=== PATIENT | female | born 1960 | race Caucasian/White ===

== ENCOUNTER 2018-07-02 02:15 | Outpatient (CLI) | payer OTHER, SELFPAY ==
--- NOTE | 2018-07-02 07:50 | DI.REPORT_ITS ---
SYMPTOM/DIAGNOSIS: SCREENING, Z12.31 MAMMOGRAM: Mammograms were interpreted according to the usual protocol including computer analysis with CAD system, tomosynthesis and C view imaging. Comparison with prior examinations. Breast density B. No masses or microcalcifications are seen. There is nothing to suggest malignancy. IMPRESSION: Negative mammogram. Routine screening is recommended. Category I. MQSA ASSESSMENT OF FINDINGS: Negative. Category 1. Patient will receive a letter notifying them of these results. BI-RADS category B. There are scattered areas of fibroglandular density.
== END 2018-07-02 02:16 ==
PROVIDERS: PCP Family Medicine; Visit Provider Nurse Practitioner Family
DX: Z12.31 Encounter for screening mammogram for malignant neoplasm of breast (principal)
CPT/HCPCS: 77063; 77067

== ENCOUNTER 2018-07-20 07:01 | Outpatient (CLI) | payer OTHER, SELFPAY | END 2018-07-20 07:21 | PROVIDERS: PCP Family Medicine; Visit Provider Family Medicine | DX: E11.9 Type 2 diabetes mellitus without complications (principal) | CPT/HCPCS: 36415; 83036 ==

== ENCOUNTER 2019-05-06 02:51 | Outpatient (CLI) | payer OTHER, SELFPAY ==
[2019-05-06 09:22] LABS: CREATININE 1.28 mg/dL (0.55-1.02); Calculated LDL 176 mg/dL; Cholesterol 247 mg/dL (50-200); Estimated GFR 43.14 (mL/min/1.73m2); HDL Cholesterol 40 mg/dL (40-60); Potassium 4.8 mmol/L (3.5-5.1); Triglyceride 159 mg/dL (30-150)
== END 2019-05-06 03:11 ==
PROVIDERS: PCP Family Medicine; Visit Provider Family Medicine
DX: E66.9 Obesity, unspecified (principal); E78.5 Hyperlipidemia, unspecified
CPT/HCPCS: 36415; 80061; 83721; 82565; 84132

== ENCOUNTER 2019-06-20 14:33 | Outpatient (REF) | payer OTHER, SELFPAY ==
--- NOTE | 2019-06-20 13:00 | PAPFT_PTH ---
PATIENT: Loly Pollock LOC: [facility] U#:[id number] AGE/SX: 58/F ROOM: RE06/20/[address]: BARB Charles : 1960 BED: DIS: 06/20/2019 SPEC #: [id number] RECD: 06/20/19 14:52 STATUS: FRANCOIS REQ #: [id number] LONNIE: 06/20/19 13:[address]: Stephanie Olivares DEPT: [facility] Cytology RECD BY: Iris Vasquez Tissues: 1 - CX/ENDOCX FOR PAP SMEARS Procedures: PAP THIN PREP/UVM Screening HPV DNA PROBE Comments: [id number]
== END 2019-06-20 14:53 ==
LOC: LBN 14:33
PROVIDERS: PCP Family Medicine; Visit Provider Nurse Practitioner Family
DX: Z12.4 Encounter for screening for malignant neoplasm of cervix (principal); Z11.51 Encounter for screening for human papillomavirus (HPV)
CPT/HCPCS: 88142; 87624

== ENCOUNTER 2019-07-13 00:40 | Outpatient (CLI) | payer OTHER, SELFPAY ==
--- NOTE | 2019-07-13 08:50 | DI.MAMMO_ITS ---
SYMPTOM/DIAGNOSIS: SCREENING, Z12.39 MAMMOGRAMS: Mammograms were interpreted according to the usual protocol including computer analysis with CAD system, tomosynthesis and C view imaging. Comparison is made with exams from [id number]. The breasts are composed of scattered fibroglandular densities, breast density, Category B. No suspicious masses or suspicious microcalcifications are seen. There has been no significant change. IMPRESSION: Category 1, negative mammogram. Yearly screening mammography is recommended. [facility] ASSESSMENT OF FINDINGS: Negative. Category 1. Patient will receive a letter notifying them of these results. BI-RADS category B. There are scattered areas of fibroglandular density.
== END 2019-07-13 01:00 ==
PROVIDERS: PCP Family Medicine; Visit Provider Nurse Practitioner Family
DX: Z12.31 Encounter for screening mammogram for malignant neoplasm of breast (principal)
CPT/HCPCS: 77063; 77067

== ENCOUNTER 2019-07-13 01:13 | Outpatient (CLI) | payer OTHER, SELFPAY ==
[2019-07-13 09:16] LABS: Hemoglobin A1C 5.9 % (4.5-6.2)
[2019-07-13 09:52] LABS: Anion Gap 9.8 mmol/L (3-11); BUN 23 mg/dL (7-18); CO2 25.2 mmol/L (21.0-32.0); CREATININE 1.57 mg/dL (0.55-1.02); Calcium 8.7 mg/dL (8.5-10.1); Chloride 106 mmol/L (98-107); Estimated GFR 34.08 (mL/min/1.73m2); Glucose 107 mg/dL (70-100); Potassium 4.8 mmol/L (3.5-5.1); Sodium 141 mmol/L (136-145)
== END 2019-07-13 01:33 ==
PROVIDERS: PCP Family Medicine; Visit Provider Family Medicine
DX: N28.9 Disorder of kidney and ureter, unspecified (principal); E74.39 Other disorders of intestinal carbohydrate absorption
CPT/HCPCS: 36415; 80048; 83036

== ENCOUNTER 2019-08-01 02:32 | Outpatient (CLI) | payer OTHER, SELFPAY ==
[2019-08-01 09:01] LABS: BUN 18 mg/dL (7-18)
[2019-08-01 09:06] LABS: CREATININE 1.44 mg/dL (0.55-1.02); Estimated GFR 37.52 (mL/min/1.73m2)
== END 2019-08-01 02:52 ==
PROVIDERS: PCP Family Medicine; Visit Provider Family Medicine
DX: N28.9 Disorder of kidney and ureter, unspecified (principal)
CPT/HCPCS: 36415; 84520; 82565

== ENCOUNTER 2020-05-24 01:41 | Outpatient (CLI) | payer OTHER, SELFPAY ==
[2020-05-24 07:52] LABS: Hemoglobin A1C 5.7 % (3.8-5.6)
[2020-05-24 08:52] LABS: Anion Gap 8.6 mmol/L (3-11); BUN 26 mg/dL (7-18); CO2 28.4 mmol/L (21.0-32.0); CREATININE 1.44 mg/dL (0.55-1.02); Calcium 9.1 mg/dL (8.5-10.1); Chloride 108 mmol/L (98-107); Estimated GFR 37.52 (mL/min/1.73m2); Glucose 93 mg/dL (74-106); Potassium 4.4 mmol/L (3.5-5.1); Sodium 145 mmol/L (136-145)
[2020-05-25 08:27] LABS: Calculated LDL 154 mg/dL (<100); Cholesterol 230 mg/dL (<200); HDL Cholesterol 41 mg/dL (40-60); Triglyceride 179 mg/dL (<150)
== END 2020-05-24 02:01 ==
PROVIDERS: PCP Family Medicine; Visit Provider Family Medicine
DX: R73.9 Hyperglycemia, unspecified (principal); E87.1 Hypo-osmolality and hyponatremia; E78.5 Hyperlipidemia, unspecified
CPT/HCPCS: 36415; 80048; 80061; 83036

== ENCOUNTER 2020-07-16 01:15 | Outpatient (CLI) | payer OTHER, SELFPAY ==
--- NOTE | 2020-07-16 07:30 | DI.MAMMO_ITS ---
EXAM: MG MAMMO SCREENING CLINICAL HISTORY: screening TECHNIQUE: Mammograms were interpreted according to the usual protocol including computer analysis w [employer] CAD system, tomosynthesis and C-view imaging. COMPARISON: FINDINGS: The breasts are of moderate density with fairly symmetrical distribution of fibroglandular tissue. N o dominant mass or clumped microcalcification is identified in either breast. The current examinatio n is compared with previous studies including July 2019 and there has been no gross interval sulema nge in appearance in comparison with the prior studies. IMPRESSION: No specific evidence of malignancy at this time. Routine screening examinations are suggested at yea rly intervals due to the family history of breast carcinoma. BI-RADS Category 1 - Negative Breast Density - Category B - Scattered areas of fibroglandular density
== END 2020-07-16 01:35 ==
PROVIDERS: PCP Family Medicine; Visit Provider Nurse Practitioner Family
DX: Z12.31 Encounter for screening mammogram for malignant neoplasm of breast (principal)
CPT/HCPCS: 77063; 77067

== ENCOUNTER 2021-09-06 02:35 | Outpatient (CLI) | payer BC, SELFPAY ==
--- NOTE | 2021-09-06 07:30 | DI.MAMMO_ITS ---
Exam(s) MAMMO SCREENING EXAM: MAMMO SCREENING CLINICAL HISTORY: screening TECHNIQUE: Mammograms were interpreted according to the usual protocol including computer analysis w [employer] CAD system, tomosynthesis and C-view imaging. COMPARISON: 2011 through 2019 FINDINGS: The breasts are composed of mainly fatty density , Breast Density category A. No suspicious masses or suspicious microcalcifications are seen. No skin thickening or abnormal axillary lymph nodes are seen. There has been no significant change from prior exams. IMPRESSION: BI-RADS Category 1, Negative mammogram Yearly screening mammography is recommended. Breast Density - Category A, fatty density. A negative radiographic report should not delay biopsy if a dominant or clinically suspicious mass is present. Up to ten percent of cancers are not identified on mammography. A negative report may reinforce clinical impression. Adenosis and dense breasts may obscure an underlying neoplasm. False positive reports average 6 to 10%. Patient will receive a letter notifying them of these results.
== END 2021-09-06 02:55 ==
PROVIDERS: PCP Family Medicine; Visit Provider Nurse Practitioner Family
DX: Z12.31 Encounter for screening mammogram for malignant neoplasm of breast (principal)
CPT/HCPCS: 77063; 77067

== ENCOUNTER 2022-07-10 03:09 | Outpatient (CLI) | payer BC, SELFPAY ==
[2022-07-10 07:48] LABS: Hemoglobin A1C 5.9 % (<5.7)
[2022-07-10 07:50] LABS: Anion Gap 6.8 mmol/L (3-11); BUN 21 mg/dL (7-18); CO2 32.2 mmol/L (21.0-32.0); CREATININE 1.3 mg/dL (0.55-1.02); Calculated LDL 150 mg/dL (<100); Chloride 104 mmol/L (98-107); Cholesterol 228 mg/dL (<200); Estimated GFR 47.37 (mL/min/1.73m2); Glucose 116 mg/dL (74-106); HDL Cholesterol 39 mg/dL (40-60); Potassium 4.2 mmol/L (3.5-5.1); Sodium 143 mmol/L (136-145); Triglyceride 198 mg/dL (<150)
== END 2022-07-10 03:10 | disposition home or self-care (01) ==
LOC: LBO 03:10
PROVIDERS: PCP Family Medicine; Visit Provider Family Medicine
DX: E87.1 Hypo-osmolality and hyponatremia (principal); E78.5 Hyperlipidemia, unspecified; R73.9 Hyperglycemia, unspecified
CPT/HCPCS: 36415; 80048; 80061; 83036

== ENCOUNTER 2022-08-28 15:54 | Outpatient (REF) | payer BC, SELFPAY ==
--- NOTE | 2022-08-28 15:25 | PAPFT_PTH ---
PATIENT: Loly Pollock LOC: [facility] U#:[id number] AGE/SX: 62/F ROOM: RE08/28/[address]: Loly Azul CNM : 1960 BED: DIS: 08/28/2022 SPEC #: [id number] RECD: 08/28/22 17:52 STATUS: FRANCOIS REQ #: [id number] LONNIE: 08/28/22 15:[address]: Loly Azul DEPT: [facility] Cytology RECD BY: Sofy Myers ENTERED: 08/28/22 17:52 SP TYPE: PAPFT OTHR DR: Gilberto Catherine MD Tissues: 1 - CX/ENDOCX FOR PAP SMEARS Procedures: PAP THIN PREP/UVM Screening HPV DNA PROBE Comments: [id number]
== END 2022-08-28 15:55 | disposition home or self-care (01) ==
LOC: LBN 15:54
PROVIDERS: PCP Family Medicine; Visit Provider Advanced Practice Midwife
DX: Z01.419 Encounter for gynecological examination (general) (routine) without abnormal findings (principal)
CPT/HCPCS: 88142; 87624

== ENCOUNTER → 2022-09-18 02:16 | Outpatient (CLI) | payer BC, SELFPAY ==
--- NOTE | 2022-09-18 07:48 | DI.MAMMO_ITS ---
Exam(s) MAMMO SCREENING EXAM: MAMMO SCREENING CLINICAL HISTORY: screening,z12.39 TECHNIQUE: Mammograms were interpreted according to the usual protocol including computer analysis w [employer] CAD system, tomosynthesis and C-view imaging. COMPARISON: FINDINGS: The breasts are of moderate density with fairly symmetrical distribution of fibroglandular tissue. N o dominant mass or clumped microcalcification is identified in either breast. The current examinatio n is compared with previous examinations including September 2021 and there has been no gross interval change in appearance in comparison with the prior studies. IMPRESSION: No specific evidence of malignancy at this time. Routine screening examinations are suggested at yea rly intervals in this age group according to the ACS ACR guidelines. BI-RADS Category 1 - Negative Breast Density - Category B - Scattered areas of fibroglandular density
== END ==
PROVIDERS: PCP Family Medicine; Visit Provider Advanced Practice Midwife
DX: Z12.31 Encounter for screening mammogram for malignant neoplasm of breast (principal)
CPT/HCPCS: 77063; 77067

== ENCOUNTER 2023-06-29 02:29 | Outpatient (CLI) | payer BC, SELFPAY ==
[2023-06-29 08:14] LABS: Anion Gap 6.8 mmol/L (3-11); BUN 20 mg/dL (7-18); CO2 30.2 mmol/L (21.0-32.0); CREATININE 1.3 mg/dL (0.55-1.02); Chloride 105 mmol/L (98-107); Estimated GFR 47.08 (mL/min/1.73m2); Glucose 100 mg/dL (74-106); Potassium 4.5 mmol/L (3.5-5.1); Sodium 142 mmol/L (136-145)
[2023-06-29 08:32] LABS: Calculated LDL 155 mg/dL (<100); Cholesterol 235 mg/dL (<200); HDL Cholesterol 48 mg/dL (40-60); Triglyceride 163 mg/dL (<150)
== END 2023-06-29 02:30 | disposition home or self-care (01) ==
LOC: LBO 02:29
PROVIDERS: PCP Family Medicine; Visit Provider Family Medicine
DX: E87.1 Hypo-osmolality and hyponatremia (principal); E78.5 Hyperlipidemia, unspecified
CPT/HCPCS: 36415; 80048; 80061

== ENCOUNTER → 2023-09-28 01:51 | Outpatient (CLI) | payer BC, SELFPAY ==
--- NOTE | 2023-09-28 07:00 | DI.MAMMO_ITS ---
Exam(s) MAMMO SCREENING EXAM: MAMMO SCREENING CLINICAL HISTORY: screening,z12.39 TECHNIQUE: Bilateral full field digital CC and MLO mammographic images were obtained with 3D tomosyn thesis and utilizing computer aided detection (CAD). COMPARISON: Available for comparison. FINDINGS: Masses/Architectural Distortion: None seen. Microcalcifications: No suspicious pleomorphic-type are seen. Skin Thickening/Nipple Retraction: None. IMPRESSION: 1. No significant interval change with no specific features of malignancy noted. 2. Unless there is more urgent need, screening mammography is recommended, as per [place] [employer] guidelines. BI-RADS Category 1 - Negative Breast Density - Category B - Scattered areas of fibroglandular density Breast density category C or D implies that the patient has dense breast tissue. Dense breast tissue is very common and is not abnormal but dense breast tissue can make it harder to find cancer on a ma mmogram. Also, dense breast tissue may increase their breast cancer risk. This information about the result of the mammogram report was provided to the patient to raise their awareness. Use this report when you speak with the patient about their risks for breast cancer, which includes their family hist ory. At that time, you may recommend for more screening tests (Ultrasound or MRI) as they might be us eful based on their risk. A negative radiographic report should not delay biopsy if a dominant or clinically suspicious mass is present. Up to ten percent of cancers are not identified on mammography. A negative report may reinforce clinical impression. Adenosis and dense breasts may obscure an underlying neoplasm. False positive reports average 6 to 10%. Patient will receive a letter notifying them of these results.
== END ==
PROVIDERS: PCP Family Medicine; Visit Provider Advanced Practice Midwife
DX: Z12.31 Encounter for screening mammogram for malignant neoplasm of breast (principal)
CPT/HCPCS: 77063; 77067

== ENCOUNTER 2024-06-28 03:00 | Outpatient (CLI) | payer BC, SELFPAY ==
[2024-06-28 07:46] LABS: CREATININE 1.2 mg/dL (0.55-1.02); Calculated LDL 133 mg/dL (<100); Cholesterol 218 mg/dL (<200); HDL Cholesterol 48 mg/dL (40-60); Triglyceride 188 mg/dL (<150)
[2024-06-28 20:08] LABS: HBs Antibody, Quant 17.2 mIU/mL (See Note); Hep B Surface Ab Positive (See Note); Hepatitis B Core Antibody Negative (Negative); Hepatitis B Surface Antigen Negative (Negative)
[2024-06-28 20:15] LABS: HIV-1/2 Ag & Ab Screen Negative (Negative)
== END 2024-06-28 03:01 | disposition home or self-care (01) ==
LOC: LBO 03:00
PROVIDERS: PCP Family Medicine; Visit Provider Family Medicine
DX: E78.5 Hyperlipidemia, unspecified (principal); Z11.59 Encounter for screening for other viral diseases; Z00.00 Encounter for general adult medical examination without abnormal findings; I10 Essential (primary) hypertension
CPT/HCPCS: 36415; 80061; 86704; 86706; 87340; 87389; 82565

== ENCOUNTER 2024-07-27 16:03 | Outpatient (REF) | payer BC, SELFPAY | END 2024-07-27 16:04 | disposition home or self-care (01) | LOC: LBN 16:03 | PROVIDERS: PCP Family Medicine; Visit Provider Physician Assistant | DX: N39.0 Urinary tract infection, site not specified (principal) | CPT/HCPCS: 87086 ==

== ENCOUNTER 2024-08-12 07:36 | Day surgery (SDC) | payer BC, SELFPAY ==
--- NOTE | 2024-08-11 11:31 | W.PM.DSUDISC ---
Date of service: 08/12/24 Time of Service: 10:04 Discharge Plan Disposition Patient Disposition: Home Condition: Good Discharge Details Reason For Visit: screening colonoscopy Attending Provider: Clark Feliciano Primary Care Provider: Gilberto Catherine Home Meds and New Rx's Prescriptions: Continued multivitamin [Daily Multi-Vitamin] Tablet 1 tab PO DAILY cranberry 400 mg capsule 400 mg PO DAILY Rx Instructions: administer with a meal cephalexin 500 mg capsule 500 mg PO QID Qty: 28 0RF triamcinolone acetonide 0.1 % cream 1 applic topical BID Qty: 30 0RF metformin 1,000 mg tablet 1,000 mg PO BID Qty: 180 3RF scopolamine base 1 mg over 3 days patch 3 day 1 patch transdermal Q3D PRN (Reason: motion sickness) Qty: 4 0RF tirzepatide (weight loss) 15 mg/0.5 mL pen injector 15 mg subcut QWEEK 28 Days Qty: 2 11RF Discontinued bisacodyl [Dulcolax (bisacodyl)] 5 mg tablet,delayed release (DR/EC) 5 mg PO ONCE Qty: 4 0RF Rx Instructions: Take per colonoscopy instructions provided by ordering providers office polyethylene glycol 3350 17 gram/dose powder 17 g PO ONCE Qty: 238 0RF Rx Instructions: Take per colonoscopy instructions provided by ordering providers office Discharge Instructions Instructions: Diverticulosis Additional Instructions: Karla, we are able to complete your colonoscopy today without any difficulty. I apologize for the challenges with the intravenous. I hope you are comfortable during the procedure. I did not see any signs of tumors, polyps, or really anything worrisome. You do have fairly extensive diverticulosis. Diverticula are weak spots in the muscular part of the colon wall. They typically accumulate as we age. They can get infected or inflamed during episodes that we refer to as diverticulitis. Hopefully, years will bother you. Generally, recommend patient stay hydrated, maintain a diet that is rich in fiber, avoid symptoms of constipation. I will attach some information here about diverticulosis in general. With an otherwise negative screening colonoscopy today, you will be good for 10 years. If you need anything or have any questions, please do not hesitate to call 1. If tolerated, consume a soft, low fiber diet for 1-2 days. 2[address] Do not drive, drink alcohol, operate machinery, make critical decisions, or do activities that require coordination or balance for 24 hours. 3. Because air was put into your colon during the procedure, expelling air from your rectum (passing gas or farting) is normal. 4. You may not have a bowel movement for 1-3 days because of the colonoscopy prep. This is normal. 5. Go directly to the emergency room if you notice any of the following: Develop chills (warm to touch), or if you have a thermometer and your temperature is above 101 Difficulty breathing or difficultly swallowing Persistent vomiting Severe abdominal pain, other than gas cramps Severe chest pain Black, tarry stools Any bleeding ? exceeding one tablespoon 6. Call your physician if the site where your intravenous was started becomes red, swollen, painful, and warm to touch. 7. Your physician has reviewed your pre-procedure medications. Please continue to take those medications as previously ordered. You will be given specific information/education regarding any changes to your medications before leaving. Stand Alone Forms: Anesthesia Discharge InstEvaristo Reyes (DSU) Activity:: Activity as Tolerated Diet:: As Tolerated Discharge Orders Discharge Orders: Discharge Order (Routine); Ordered 08/11/24 Ordered By: Clark Feliciano DS: Diagnosis Discharge Diagnosis (1) Encounter for screening colonoscopy: Status: Acute Asessment and Plan: Diverticulosis; otherwise negative screening colonoscopy. Follow-up in 10 years
--- NOTE | 2024-08-11 11:33 | W.COLOREPORT ---
Date of service: 08/12/24 Time of Service: 10:05 Colonoscopy Report Date of procedure: 08/12/24 Pre-op diagnosis general: screening colonoscopy Post-op diagnosis procedure note: other (Diverticulosis) Procedure: colonoscopy Surgeon: Clark Feliciano Anesthesia Type: General:No Airway Estimated blood loss (mL): 0 Pathology: none sent Complications: None Disposition: same day Indications: Karla is a 64 year old woman who needs her next screening colonoscopy Prep: Miralax/Dulcolax Procedure Start Time: 09:46 Procedure End Time: 09:59 Retraction Time: 7 Findings: Pandiverticulosis Procedure Description: After the induction of anesthesia, and with the patient in left lateral decubitus position, I began by performing an external anorectal exam.? Perineum and skin were normal, as was the anal verge.? There was no evidence of external hemorrhoids.? Next, I performed a digital rectal exam.? I did not appreciate any abnormal findings.? Next, I advanced a colonoscope into the rectal vault.? I performed retroflexion.? This appeared normal.? Using insufflation, I then advanced the colonoscope beyond the rectal folds and into the sigmoid colon before advancing towards the cecum.? There is diverticulosis involving all segments of the colon.? The scope was noted to be in the cecum by identification of the ileocecal valve and appendiceal orifice.? I then began withdrawing the colonoscope using repeated irrigation as necessary for full evaluation of the colonic mucosa. ?Once the scope was withdrawn to the level of the rectum, great care was taken to examine portions of the rectal folds.? I did not see any signs of tumors or polyps along the length of the colon or rectum. Finally, the scope was withdrawn and the patient was brought to the same-day surgery recovery unit as the anesthetic wore off. ?The findings and instructions were shared with the patient prior to discharge. [place] Bowel Prep [place] Bowel Prep Right Colon: 3 Left Colon: 3 Transverse Colon: 3 Total Score: 9
[2024-08-12 08:03] VITALS: BP 126/90; PULSE 89; RESP 16; TEMP 36.5; O2SAT 99
[2024-08-12] MEDS: Lactated Ringers 1,000 ML 80 ML IV (08:28)
--- NOTE | 2024-08-12 09:19 | ANES.PREOP_ITS ---
General Info Date of Service Date Performed: 08/12/24 Height: 5 ft 6 in Weight: 116.4 kg Body Mass Index (BMI): 41.4 Surgical Procedure: Operation Date: 08/12/24 09:05 Proposed Procedure Side Surgeon jess Feliciano MD Meds Allergies and Home Medications Allergies Allergy/AdvReac Type Severity Reaction Status Date / Time No Known Allergies Allergy Verified 08/12/24 08:01 Home Medication ?Medication ?Instructions ?Recorded multivitamin (Daily Multi-Vitamin 1 tab PO DAILY 08/12/21 tablet) cranberry 400 mg capsule 400 mg PO DAILY 08/28/22 metformin 1,000 mg tablet 1,000 mg PO BID #180 tabs 05/02/24 scopolamine base 1 mg over 3 days 1 patch transdermal Q3D PRN motion 07/05/24 transdermal patch sickness #4 ea triamcinolone acetonide 0.1 % 1 applic topical BID #30 grams 07/11/24 topical cream cephalexin 500 mg capsule 500 mg PO QID #28 caps 07/27/24 tirzepatide (weight loss) 15 15 mg (0.5 mL) subcut QWEEK 4 08/06/24 mg/0.5 mL subcutaneous pen injector weeks #2 mL Current Visit Medications: Current Medications Generic Name Dose Route Start Last Admin Trade Name Freq PRN Reason Stop Dose Admin Hyoscyamine Sulfate 0.125 mg 08/11/24 11:34 Hyoscyamine 0.125 Mg Sl/Oral/Chew SL 09/10/24 11:33 DIRECTED PRN Ringer's Solution 1,000 mls @ 80 mls/hr 08/12/24 06:00 08/12/24 08:28 IV 08/12/24 23:59 80 mls/hr INFUSION VIOLA Administration IV Miscellaneous Supplies 1 each 08/12/24 06:00 Iv Access IV 08/12/24 23:59 DIRECTED VIOLA Ondansetron HCl 4 mg 08/11/24 11:34 Ondansetron 4 Mg/2 Ml Vial IVP 09/10/24 11:33 Q4H PRN PRN Nausea / Vomiting Sodium Chloride 0 ml 08/12/24 06:00 Normal Saline Flush 10 Ml Syr IV 08/12/24 23:59 PRN PRN Sodium Chloride 0 ml 08/12/24 06:00 Normal Saline 10 Ml Vial IJ 08/12/24 23:59 DIRECTED PRN Sterile Water 0 ml 08/12/24 06:00 Water,Injection,Sterile 10 Ml Vial IJ 08/12/24 23:59 DIRECTED PRN PFSH Active Problems Active Problems: Problem Status Onset Code Encounter for screening colonoscopy Acute Z12.11 Routine eye exam Acute Z01.00 Prediabetes Acute R73.03 Encounter for routine gynecological examination Acute Z01.419 Glucose intolerance Acute E74.39 Abnormal weight Chronic R68.89 Personal history of leukemia Acute 05/15/14 Z85.6 Obesity Acute 06/05/16 E66.9 Elevated lipids Acute 06/05/16 E78.5 Elevated BP without diagnosis of hypertension Acute 06/05/16 R03.0 Medical History Medical History Hyperlipidemia Hx [place] Leukemia (~1980) Was seeing Hem/Onc at [facility] yrly till 2007 Surgical History Surgical History Ligation of fallopian tube Epigastric Hernia Repair 06/26/17; DR. DAI Cholecystectomy section Tobacco Smoking/Tobacco Use Status: Never Passive smoking exposure: No Second hand exposure: Yes Alcohol Alcohol Intake: current Alcohol intake frequency: a few times a month Alcohol type: beer and wine Substance Use Substance use: Never Substance use type: does not use Vital Signs and Lab Results Vital Signs Most Recent Vital Signs in EMR: Most Recent Vital Signs Temp Pulse Resp BP Pulse Ox 36.5 C 89 16 126/90 99 08/12/24 08:03 08/12/24 08:03 08/12/24 08:03 08/12/24 08:03 08/12/24 08:03 Lab Results Blood Type / Crossmatch: No Data to Display Complete Blood Count: No Data to Display Complete Metabolic Panel: No Data to Display Liver Function Panel: No Data to Display Coagulation Panel: No Data to Display Cardiac Panel: No Data to Display Arterial Blood Gas: No Data to Display Venous Blood Gas: No Data to Display Pancreas Panel: No Data to Display Thyroid Panel: No Data to Display Infectious Disease: No Data to Display Blood Cultures: No Data to Display Toxicology Panel: No Data to Display Anesthesia Assessment and Plan Anesthesia History Personal History: No History of Anesthesia Complications Family History: No Family History of Anesthesia Complications Exercise Tolerance Exercise Tolerance: Metabolic Equivalents>4 Pertinent Negatives Pertinent Negatives: No Symptoms of GERD Cardiac & Pulmonary Exam Cardiac Exam: Normal S1/S2 Heart Sounds Pulmonary Exam: Clear Bilateral Breath Sounds Implantable Cardiac Device Does patient have a Pacemaker or an ICD?: No Airway Exam Known Difficult Airway: No Mallampati Class: 2 Mouth Opening: Normal (> 3cm) Thyromental Distance: Greater than 3 cm Neck Range of Motion: Full ROM Neck Circumference: Normal Teeth Condition: Normal Dentition ASA Classification ASA Score: ASA 2 Emergency Case?: No NPO Status NPO Status: NPO Clears >2 hours, Solids >8 hours Anesthesia Plan Resuscitation Status: Full Code Anesthesia Technique: General Anesthesia Airway Planned: Natural Airway Monitors Used: Standard Monitors
[2024-08-12 09:20] VITALS: BMI 41.4
[2024-08-12 10:04] VITALS: BP 127/64; PULSE 89; RESP 17; TEMP 36.2; O2SAT 96
--- NOTE | 2024-08-12 10:11 | W.ANESPOSTOP ---
Postoperative Evaluation Date, Time and Location Date Performed: 08/12/24 Time Performed: :11 Patient Location: Day Surgery Unit Vital Signs Most Recent Imported Vital Signs: Most Recent Vital Signs Temp Pulse Resp BP Pulse Ox 36.2 C L 89 17 127/64 96 08/12/24 10:04 08/12/24 10:04 08/12/24 10:04 08/12/24 10:04 08/12/24 10:04 Pain Score Most Recent Pain Score: Most Recent Pain Score Pain Level 0 08/12/24 10:04 Assessment Mental Status: Awake (Alert & Oriented to Patient Baseline) Airway and Respiratory Function: Patent airway with normal (patient baseline) respiratory exam Cardiovascular Function: Hemodynamically Stable Hydration Status: Adequately Hydrated Nausea & Vomiting: No Nausea or Vomiting Pain: Pt. Denies Any Pain Peripheral Nerve Block: Patient did not receive a nerve block
[2024-08-12 10:30] VITALS: BP 138/83; PULSE 70; RESP 16; TEMP 36.2; O2SAT 97
== END 2024-08-12 10:38 | disposition home or self-care (01) ==
LOC: SUR 07:36
PROVIDERS: PCP Family Medicine; Visit Provider Surgery
PROC: 0DJD8ZZ Inspection of Lower Intestinal Tract, Via Natural or Artificial Opening Endoscopic (ICD-10-PCS; CPT 45378; principal; 2024-08-12 09:00)
DX: Z12.11 Encounter for screening for malignant neoplasm of colon (principal); K57.30 Diverticulosis of large intestine without perforation or abscess without bleeding; R03.0 Elevated blood-pressure reading, without diagnosis of hypertension; E66.9 Obesity, unspecified
CPT/HCPCS: 45378; J2003; J2704

== ENCOUNTER 2024-09-30 00:05 | Outpatient (CLI) | payer BC, SELFPAY ==
--- OUTSIDE RECORDS SUMMARY | 2024-09-30 00:07 | XMS_ITS | Encounter Summary ---
Author Organization [facility] Address [address] [place] [address] Care Team Providers Care Machine Tailer Name Role Phone Ridge Wahl MD Primary Care Provide r Encounter Details Date Type Department Care Team (Late st Contact Info) Description 06/05/2016 Results Only [facility] [phone] Stephanie Olivares, [address] [place] [phone] Social History Tobacco Use Types Packs/Day Years Used Date Smoking Tobacco: Never Assessed Comments Unknown Sex and Gender Information Value Date Recorded Sex Assigned at Not on file Legal Sex Female 17:24 EST Gender Identity Not on file Sexual Orientation Not on file documented as of this encounter Plan of Treatment Not on file documented as of this encounter Procedures Procedure Name Priority Date/Time Associated Diagnosis Comments PAP TEST- RESULT ONLY Routine 06/05/2016 0:00 EDT documented in this encounter Results * PAP TEST- RESULT ONLY (06/05/2016 0:00 EDT) Pathology Report: CYTOPATHOLOGY REPORT Reports generated via electronic interface contain original data; however they are lacking the format of the original report. Caution should be taken when reading/interpreti ng unformatted reports. Name: ? MELINDA POLLOCK ? Accession #: ? [id number] ? : ? 1960 (Age: 55) ??F ?Collect Date: ? 06/05/2016 ? Location: ? [facility] ? Receive Date: ? 06/06/2016 ? Provider: STEPHANIE OLIVARES DIRECTOR OF PROMOTIONS Copy to: MARBELLA LAWRENCE MD ? Final Report SPECIMEN ADEQUACY ? Satisfactory for Evaluation - transformation zone component absent GENERAL CATEGORIZATION ? Negative for Intraepithelial Lesion or Malignancy ?? Last Menstrual Period: 05/20/16 Specimen/Source: ??Pap Test, Cervix/Endocervix, ThinPrep Imaging System with manual evaluation Document reviewed and electronically signed by: ? Kristie Garibay, CT(ASCP) ? Report ??Date: 06/12/2016 13:04 HPV with Pap Test ? Date Ordered: ? 06/12/2016 ? Status: ?? Signed Out ?Date Complete: ? 06/16/2016 ? By: ??System Interface ? Date Reported: ? 06/16/2016 ? Interpretation RESULT: Negative for HPV. No E6 or E7 mRNA is detected from HPV types 16,18,31,33,35, 39,45,51,52,56,58, 59,66, and 68 by instrument and controls technician mediated amplification. Comments Document reviewed and electronically signed by: ? System Interface ? Report date: 06/16/2016 By the signature above, the attending physician certifies that he/she has personally conducted a gross and/or microscopic examination of the described specimens and rendered or confirmed the above diagnosis. End of Report [facility] 06/05/2016 06/06/2016 us Stephanie Olivares DIRECTOR OF PROMOTIONS PATHOLOGY ORDERABLES Final R esult [facility] [address] [place] [address] documented in this encounter Visit Diagnoses Not on filedocumented in this encounter Care Teams Machine Tailer Relationship Specialty Start Date End Date Ridge Wahl MD [address] [place] [phone] PCP - General 01/02/15 documented as of this encounter
--- OUTSIDE RECORDS SUMMARY | 2024-09-30 00:07 | XMS_ITS | Encounter Summary ---
Author Organization [facility] Address [address] [place] [id number] Care Team Providers Care Sap Business Analyst Name Role Phone Ridge Wahl MD Primary Care Provide r Encounter Details Date Type Department Care Team (Late st Contact Info) Description 06/28/2024 Lab Requisition [facility] Pathology & Laboratory Medicine - [address] [address] Outr Resulting Lab, Provider Social History Tobacco Use Types Packs/Day Years [...] Procedure Name Priority Date/Time Associated Diagnosis Comments HIV 1/2 ANTIGEN AND ANTIBODY, 4TH GENERATION Routine 06/28/2024 7:05 EDT documented in this encounter Results * HIV 1/2 ANTIGEN AND ANTIBODY, 4TH GENERATION (06/28/2024 7:05 EDT) HIV 1 and 2 Antibody/p24 Antigen, 4th Generation Negative Negative 06/28/2024 20:10 EDT [facility] Comment:If acute HIV-1 infec tion is suspected in a high risk patient, submit plasma specimen for HIV-1 RNA quantitation test. Blood VENOUS BLOOD / Unknown 06/28/2024 7:05 EDT 06/28/2024 17:54 EDT Narrative [facility] - 06/28/2024 20:10 EDT Fourth Generation assay performed on the [employer] XPT. us Provider Outr Resulting Lab IMMUNOLOGY AND SEROL OGY ORDERABLES Final Result Performing Organization Address City/State/[facility] Co de Phone Number [facility] [address] [place] [address] documented in this encounter Visit Diagnoses Not on filedocumented in this encounter Care Teams Sap Business Analyst Relationship Specialty Start Date End Date Ridge Wahl MD [address] [place] [phone] PCP - General 01/02/15 documented as of this encounter
--- OUTSIDE RECORDS SUMMARY | 2024-09-30 00:07 | XMS_ITS | Encounter Summary ---
Author Organization [facility] Address [address] [place] [address] Care Team Providers Care Paper Maker Name Role Phone Jaret Jaimes MD Primary Care Provider Unavail able Encounter Details Date Type Department Care Team (Late st Contact Info) Description 02/01/2013 Results Only [facility] Laboratory Services - [facility] ([facility]) [address] [place], [place] [address] Stephanie Olivares, [facility] [address] [place] [address] [place] [address] Social History Tobacco Use Types Packs/Day Years [...] Diagnosis Comments PAP TEST- RESULT ONLY Routine 02/01/2013 0:00 EDT documented in this encounter Results * PAP TEST- RESULT ONLY (02/01/2013 0:00 EDT) Pathology Report: CYTOPATHOLOGY REPORT Reports generated via electronic interface contain original data; however they are lacking the format of the original report. Caution should be taken when reading/interpreti ng unformatted reports. Name: ? MELINDA POLLOCK ? Accession #: ? [id number] ? : ? 1960 (Age: 52) ??F ?Collect Date: ? 02/01/2013 ? Location: ? [facility] ? Receive Date: ? 02/03/2013 ? Provider: STEPHANIE OLIVARES ASSOCIATE PROFESSOR OF MEDICINE Copy to: JAVON GARCIA MD ? Final Report SPECIMEN ADEQUACY ? Satisfactory for Evaluation - transformation zone component present GENERAL CATEGORIZATION ? Negative for Intraepithelial Lesion or Malignancy ?? Specimen/Source: ??Pap Test, Cervix/Endocervix, ThinPrep Imaging System with manual evaluation Document reviewed and electronically signed by: ? RUSTY Devlin(ASCP) ? Report ??Date: 02/09/2013 13:48 HPV with Pap Test ? Date Ordered: ? 02/09/2013 ? Status: ?? Signed Out ?Date Complete: ? 02/11/2013 ? By: ??System Interface ? Date Reported: ? 02/11/2013 ? Interpretation RESULT: Negative for HPV. No E6 or E7 mRNA is detected from HPV types 16,18,31,33,35, 39,45,51,52,56,58, 59,66, and 68 by power line installer and repairer mediated amplification. Comments Document reviewed and electronically signed by: ? System Interface ? Report date: 02/11/2013 By the signature above, the attending physician certifies that he/she has personally conducted a gross and/or microscopic examination of the described specimens and rendered or confirmed the above diagnosis. End of Report [facility] 02/01/2013 02/03/2013 us Stephanie Olivares ASSOCIATE PROFESSOR OF MEDICINE PATHOLOGY ORDERABLES Final R esult [facility] [address] [place] [address] documented in this encounter Visit Diagnoses Not on filedocumented in this encounter Care Teams Paper Maker Relationship Specialty Start Date End Date Jaret Jaimes MD PCP - General 02/02/13 01/01/15 documented as of this encounter
--- OUTSIDE RECORDS SUMMARY | 2024-09-30 00:07 | XMS_ITS | Referral Summary ---
Author Organization [facility] Address [address] [place] [address] Care Team Providers Care Electrical Assemblies Supervisor Name Role Phone Ridge Wahl MD Primary Care Provide r Social History Tobacco Use Types Packs/Day Years Used Date Smoking Tobacco: Never Assessed Comments Unknown Sex and Gender Information Value Date Recorded Sex Assigned at Not on file Legal Sex Female 17:24 EST Gender Identity Not on file Sexual Orientation Not on file Plan of Treatment Not on file Care Teams Electrical Assemblies Supervisor Relationship Specialty Start Date End Date Ridge Wahl MD [address] [place] [phone] PCP - General 01/02/15
--- OUTSIDE RECORDS SUMMARY | 2024-09-30 00:07 | XMS_ITS | Encounter Summary ---
Author Organization [facility] Address [address] [place] [address] Care Team Providers Care Pigment And Lacquer Mixer Name Role Phone Ridge Wahl MD Primary Care Provide r Encounter Details Date Type Department Care Team (Late st Contact Info) Description 06/28/[address] [facility] Pathology & Laboratory Medicine - [address] [address] Outr Resulting Lab, Provider Social History Tobacco [...] Procedure Name Priority Date/Time Associated Diagnosis Comments HEPATITIS B PROFILE Routine 06/28/2024 7:05 EDT documented in this encounter Results * HEPATITIS B PROFILE (06/28/2024 7:05 EDT) Hep B Surface Ag Negative Negative 06/28/20 20:04 EDT [facility] Hep B Surface Ab, Quantitative 17.2 See Note mIU/mL 06/28/2024 20:04 EDT [facility] Comment: Reference Range for Hep B Surface Ab, Quant: Positive: >= 10.0 mIU/mL Negative: ??< 10.0 mIU/mL Patient is presumed to be immune to infection with Hepatitis B Virus. Hep B Surface Ab, Qualitative Positive See Note 06/28/2024 20:04 EDT [facility] Comment: Reference Range for Hep B Surface Ab, Qual: Unvaccinated: ??Negative Vaccinated: ??Positive Hepatitis B Core Ab, Total Negative Negative 06/28/2024 20:04 EDT [facility] Blood VENOUS BLOOD / Unknown 06/28/2024 7:05 EDT 06/28/2024 17:53 EDT us Provider Outr Resulting Lab CHEMISTRY & BLOOD GA S ORDERABLES Final Result Performing Organization Address City/State/[facility] Co de Phone Number [facility] [address] [place] [phone] documented in this encounter Visit Diagnoses Not on filedocumented in this encounter Care Teams Pigment And Lacquer Mixer Relationship Specialty Start Date End Date Ridge Wahl MD [address] [place] [phone] PCP - General 01/02/15 documented as of this encounter
--- OUTSIDE RECORDS SUMMARY | 2024-09-30 00:07 | XMS_ITS | Encounter Summary ---
Author Organization [facility] Address [address] [place] [address] Care Team Providers Care Subassembly Supervisor Name Role Phone Ridge Wahl MD Primary Care Provide r Encounter Details Date Type Department Care Team (Late st Contact Info) Description 08/29/2022 Lab Requisition [facility] Pathology & Laboratory Medicine - [address] [address] Loly Azul, INTAKE CLINICIAN [address] [place] [phone] Encounter for gynecological examination (general) (routine) without abnormal findings Social History Tobacco Use Types Packs/Day Years [...] Name Priority Date/Time Associated Diagnosis Comments PAP TEST Today 08/28/2022 15:25 EDT Encounter for gynecological examination (general) (routine) without abnormal findings HPV DNA DETECTION WITH GENOTYPING, PCR Today 08/28/2022 15:25 EDT Encounter for gynecological examination (general) (routine) without abnormal findings documented in this encounter Results * HUMAN PAPILLOMAVIRUS (HPV) DETECTION-HIGH RISK TYPES (08/28/2022 15:25 EDT) HPV other High Risk types, PCR Negative Negative 09/11/2022 7:18 [facility] Comment:No E6 or E7 mRNA is detected from HPV types 16,18,31,33,35,39,45,51,52,56,58,59,66, and 68 by hydraulic jack adjuster mediated amplification. Papanicolaou smear specimen (specimen) CERVIX UTERI STRUCTURE / Unknown 08/28/2022 15:25 EDT 09/09/2022 13:19 EST Loly Azul APN MICROBIOLOGY - GENERAL OR DERABLES Final Result [facility] [address] [place] [address] * PAP TEST (08/28/2022 15:25 EDT) Specimens A. Cervix and/or Endocervix , ThinPrep Imaging System with Manual Evaluation 09/11/2022 7:18 [facility] Specimen Adequacy Satisfactory for Evaluation - transformation zone component present 09/11/2022 7:18 [facility] General Categorization Negative for intraepithelial lesion or malignancy 09/11/2022 7:18 [facility] Attestation . 09/11/2022 7:18 [facility] at 0718 Clinical History See below 09/11/20 7:18 [facility] HPV The result for the Human Papillomavirus (HPV) Detection-High Risk Types is Negative. No E6 or E7 mRNA is detected from HPV types 16,18,31,33,35,39 ,45,51,52,56,58,5 9,66, and 68 by hydraulic jack adjuster mediated amplification.Irma ting was performed on specimen [id number] and was resulted on 09/11/2022 0713 EST by JENNIE, LAB INSTRUMENT RESULTS IN 09/11/2022 7:18 [facility] Performing Lab [facility] 09/11/2022 7:18 EST [facility] Scanned Images 09/11/2022 7:18 EST [facility] Papanicolaou smear specimen (specimen) CERVIX UTERI STRUCTURE / Unknown 08/28/2022 15:25 EDT 08/29/2022 11:25 EDT us Loly Azul APN PATHOLOGY ORDERABLES Milli gordillo Result [facility] [address] [place] [address] documented in this encounter Visit Diagnoses Diagnosis Encounter for gynecological examination (general) (routine) without abnormal findings documented in this encounter Care Teams Subassembly Supervisor Relationship Specialty Start Date End Date Ridge Wahl MD [address] [place] [phone] PCP - General 01/02/15 documented as of this encounter
--- OUTSIDE RECORDS SUMMARY | 2024-09-30 00:07 | XMS_ITS | Encounter Summary ---
Author Organization [facility] Address [address] [place] [address] Care Team Providers Care Manager Application Development Name Role Phone Jaret Jaimes MD Primary Care Provider Unavail able Encounter Details Date Type Department Care Team (Late st Contact Info) Description 12/29/2014 Results Only [facility] [phone] Fermin Nath, DO [address] [place] [phone] Social History Tobacco Use Types Packs/Day Years [...] Procedure Name Priority Date/Time Associated Diagnosis Comments SURGICAL PATHOLOGY Routine 12/29/2014 8:56 EST documented in this encounter Results * SURGICAL PATHOLOGY (12/29/2014 8:56 EST) Pathology Report: SURGICAL PATHOLOGY REPORT Reports generated via electronic interface contain original data; however they are lacking the format of the original report. Caution should be taken when reading/interpret ing unformatted reports. Name: ? MARISMELINDA ? Accession #: ? [id number] ? : ? 1960 (Age: 54) ??F ? Collect Date: ? 12/29/2014 ? Location: ? [facility] ? Receive Date: ? 12/29/2014 ? Provider: FERMIN NATH DO Copy to: ROGER OCONNOR MD ? Final Pathologic Diagnosis: GALLBLADDER, CHOLECYSTECTOMY: - ??Chronic cholecystitis with papillary cholesterolosis. - ??Cholelithiasis. Document reviewed and electronically signed by: ORQUIDEA MCLEAN MD Report ??Date: 01/02/2015 17:48 By the signature above, the attending physician certifies that he/she has personally conducted a gross and/or microscopic examination of the described specimens and rendered or confirmed the above diagnosis. Specimen(s) Received: Gallbladder Clinical History: Biliary colic Gross Description: ? Received in formalin labelled with proper patient identification (initials M, K) and gallbladder is an intact gallbladder (7.5 x 2.8 x 2.5 cm) with an attached segment of cystic duct (0.5 cm in length x 0.4 cm in diameter). ? The serosa is gomez-green and smooth. The mucosa is dark green and velvety with focal soft yellow polypoid structures (0.1-0.4 cm in greatest dimension), and the wall is 0.2 cm in thickness. The cystic duct lumen is patent. The cystic duct margin is inked blue. 12 yellow-brown choleliths are present ranging from 0.3 cm to 0.5 cm in greatest dimension. ? Two insurance claim representative sections and the inked en face cystic duct margin are submitted in 1. Liz Machado 01/01/2015 08:49 AM End of Report [facility] 12/29/2014 8:56 EST 12/29/2014 8:56 EST us Fermin Nath DO PATHOLOGY ORDERABLES Final Res ult [facility] [address] [place] [address] documented in this encounter Visit Diagnoses Not on filedocumented in this encounter Care Teams Manager Application Development Relationship Specialty Start Date End Date Jaret Jaimes MD PCP - General 02/02/13 01/01/15 documented as of this encounter
--- OUTSIDE RECORDS SUMMARY | 2024-09-30 00:07 | XMS_ITS | Encounter Summary ---
Author Organization [facility] Address [address] [place] [address] Care Team Providers Care Shaker Operator Name Role Phone Unavailable Primary Care Provider Unavailabl e Encounter Details Date Type Department Care Team (Late st Contact Info) Description 08/31/2006 Results Only [facility] [address] [place] [address] Stephanie Olivares, [facility] [address] [place] [address] [place] [phone] Social History Tobacco Use Types Packs/Day Years [...] Procedure Name Priority Date/Time Associated Diagnosis Comments CYTOPATHOLOGY Routine 08/31/2006 0:00 EST documented in this encounter Results * CYTOPATHOLOGY (08/31/2006 0:00 EST) Pathology Report: CYTOPATHOLOGY REPORT Reports generated via electronic interface contain original data; however they are lacking the format of the original report. Caution should be taken when reading/interpreti ng unformatted reports. Name: ? MELINDA MASON ? Accession #: ? [id number] : ? 1960 (Age: 46) ??F ?Collect Date: ? 08/31/2006 Location: ? [facility] ? Receive Date: ? 09/01/2006 Provider: ?STEPHANIE OLIVARES CANCER PROGRAM COORDINATOR Copy to: ? Specimen/Source: ?ThinPrep Pap Test, Cervix/Endocervix, processed on [employer] ThinPrep Imaging System, with manual evaluation Last Menstrual Period: ? 08/13/06 Other: ? HPVA - HPV testing requested if ASC-US on the current ThinPrep Pap test. ? SPECIMEN ADEQUACY ? Satisfactory for Evaluation - transformation zone component absent GENERAL CATEGORIZATION ? Negative for Intraepithelial Lesion or Malignancy ? Document reviewed and electronically signed by: ? Greer Al, SCT(ASCP) ? Report Date: ??09/04/2006 11:31 End of Report [facility] 08/31/2006 09/01/2006 us Stephanie Olivares CANCER PROGRAM COORDINATOR PATHOLOGY ORDERABLES Final R esult [facility] [address] [place] [address] documented in this encounter Visit Diagnoses Not on filedocumented in this encounter
--- OUTSIDE RECORDS SUMMARY | 2024-09-30 00:07 | XMS_ITS | Encounter Summary ---
Author Organization [facility] Address [address] [place] [address] Care Team Providers Care Cosmetologist Apprentice Name Role Phone Unavailable Primary Care Provider Unavailabl e Encounter Details Date Type Department Care Team (Late st Contact Info) Description 05/03/2010 Results Only [facility] Laboratory Services - [facility] ([facility]) [address] [place], [place] [address] Stephanie Olivares, [facility] [address] [place] [address] [place] [phone] Social History Tobacco Use Types Packs/Day Years [...] Priority Date/Time Associated Diagnosis Comments CYTOPATHOLOGY Routine 05/03/2010 0:00 EDT documented in this encounter Results * CYTOPATHOLOGY (05/03/2010 0:00 EDT) Pathology Report: CYTOPATHOLOGY REPORT ? Reports generated via electronic interface contain original data; ? however they are lacking the format of the original report. ? Caution should be taken when reading/interpreti ng unformatted reports. ? Name: ? MELINDA MASON ? Accession #: ? [id number] ? : ? 1960 (Age: 49) ??F ?Collect Date: ? 05/03/2010 ? Location: ? [facility] ? Receive Date: ? 05/07/2010 ? Provider: ?STEPHANIE SANTANA RECRUITING ADMINISTRATOR ? Copy to: ? Specimen/Source: ?Pap Test, Cervix/Endocervix, ThinPrep Imaging System ? with manual evaluation ? Last Menstrual Period: ? 6/6/10 ? Other: ? HPVA - HPV testing requested if ASC-US on the current ThinPrep Pap test. ? SPECIMEN ADEQUACY ? Satisfactory for Evaluation ? - transformation zone component present ? GENERAL CATEGORIZATION ? Negative for Intraepithelial Lesion or Malignancy ? Document reviewed and electronically signed by: ? Deja Rehan, CT(ASCP) ? Report Date: ??05/09/2010 15:39 ? End of Report ? [facility] 05/03/2010 05/07/2010 us Stephanie Olivares RECRUITING ADMINISTRATOR PATHOLOGY ORDERABLES Final R esult [facility] [address] [place] [address] documented in this encounter Visit Diagnoses Not on filedocumented in this encounter
--- OUTSIDE RECORDS SUMMARY | 2024-09-30 00:07 | XMS_ITS | Encounter Summary ---
Author Organization [facility] Address [address] [place] [address] Care Team Providers Care Frozen Pie Maker Name Role Phone Unavailable Primary Care Provider Unavailabl e Encounter Details Date Type Department Care Team (Latest Contact Info) Description 04/07/2006 9:19 EDT - 04/07/2006 11:59 EDT Hospital Encounter [facility] [address] [place] [address] Adam Herrera MD Discharge Disposition: Auto Discharge Social History Tobacco Use Types Packs/Day Years Used Date Smoking Tobacco: Never Assessed Comments Unknown Sex and Gender Information Value Date Recorded Sex Assigned at Not on file Legal Sex Female 17:24 EST Gender Identity Not on file Sexual Orientation Not on file documented as of this encounter Discharge Disposition Disposition Code Departure Means Destination Auto Discharge documented in this encounter Plan of Treatment Not on file documented as of this encounter Procedures Procedure Name Priority Date/Time Associated Diagnosis Comments RAD US NECK/THYROID 04/07/2006 1 2:07 EDT SLIDE REQUEST Routine 04/07/2006 10:34 EDT COMPLETE BLOOD COUNT AND DIFFERENTIAL Routine 04/07/2006 10:34 EDT ALT Routine 04/07/2006 10:34 EDT AST Routine 04/07/2006 10:34 EDT TSH Routine 04/07/2006 10:34 EDT T4 FREE Routine 04/07/2006 10:34 EDT documented in this encounter Results * RAD US NECK/THYROID (04/07/2006 12:07 EDT) Anatomical Region Laterality Modality Other 04/07/2006 12:0 7 EDT Narrative 05/19/2009 11:30 EDT ACUTE LYPHOCYTIC LEUKEMIA ULTRASOUND NECK / THYROID 04/07/06 1100 CLINICAL HISTORY: 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 ??Rule out thyroid cancer. COMPARISON: 06/26/03 FINDINGS: Sagittal and transverse images of the thyroid were performed. The right thyroid lobe measures 5.0x1.3x1.4cm and measured 4.8x1.6x1.0cm on the prior study. ??The left lobe of the thyroid measures 4.6x1.1x1.1cm and measured 4.8x1.6x1.1cm in the past. There is a small, heterogeneous hypoechoic nodule within the right lobe of the thyroid adjacent to the isthmus again noted. ??It measures 0.6x0.3x0.3cm and measured 0.5x0.3x0.5cm on 06/26/03 study. ??There is no evidence of lymphadenopathy. IMPRESSION: 1. Stable small nodule in the right lobe of the thyroid adjacent to the isthmus. 2. No evidence of lymphadenopathy. D: ??04/07/06 T: ??04/09/06 /jv I have personally reviewed the images and the above interpretation and agree with the findings. 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 Rule out thyroid cancer. COMPARISON: 06/26/03 FINDINGS: Sagittal and transverse images of the thyroid were performed. The right thyroid lobe measures 5.0x1.3x1.4cm and measured 4.8x1.6x1.0cm on the prior study. The left lobe of the thyroid measures 4.6x1.1x1.1cm and measured 4.8x1.6x1.1cm in the past. There is a small, heterogeneous hypoechoic nodule within the right lobe of the thyroid adjacent to the isthmus again noted. It measures 0.6x0.3x0.3cm and measured 0.5x0.3x0.5cm on 06/26/03 study. There is no evidence of lymphadenopathy. IMPRESSION: 1. Stable small nodule in the right lobe of the thyroid adjacent to the isthmus. 2. No evidence of lymphadenopathy. /ramirez I have personally reviewed the images and the above interpretation and agree with the findings. Adam Herrera MD IMG US ORDERABLES Final Re sult * TSH (04/07/2006 10:34 EDT) Pathologist [facility] TSH 1.81 0.35 - 5.00 uIU/mL [facility] 04/07/2006 10:3 4 EDT 04/07/2006 11:09 EDT Adam Herrera MD CHEMISTRY & BLOOD GAS ORDE RABLES Final Result [facility] [address] [place] [address] * SLIDE REQUEST (04/07/2006 10:34 EDT) Pathologist [facility] Note A smear is filed in the Hematology lab [facility] 04/07/2006 10:3 4 EDT 04/07/2006 11:09 EDT Adam Herrera MD HEMATOLOGY & PF4 ORDERABLE S Final Result [facility] [address] [place] [address] * T4 FREE (04/07/2006 10:34 EDT) Pathologist [facility] Free T4 1.1 0.8 - 1.8 ng/dL [facility] 04/07/2006 10:3 4 EDT 04/07/2006 11:09 EDT Adam Herrera MD CHEMISTRY & BLOOD GAS PINAKalros CAMACHO Final Result [facility] [address] [place] [address] * HEMAGRAM AND DIFFERENTIAL (04/07/2006 10:34 EDT) WBC 5.79 4.0 - 12.4 K/cmm [facility] RBC 4.86 3.86 - 5.04 M/cmm [facility] Hemoglobin 15.1 11.6 - 15.2 gm/dl [facility] HCT 43.7 34.9 - 44.4 % [facility] MCV 90 81 - 98 fl [facility] MCH 31.1 26.7 - 33.3 pg [facility] MCHC 34.6 32.1 - 35.9 gm/dl [facility] PLT 262 141 - 320 K/cmm [facility] RDW-CV 13.2 11.7 - 14.6 % [facility] % Neutrophils 61.7 45.5 - 79.7 % [facility] % Lymphocytes 27.1 15.0 - 46.8 % [facility] % Monocytes 8.2 1.8 - 12.0 % [facility] % Eosinophils 2.6 0.6 - 6.9 % [facility] % Basophils 0.4 0.2 - 1.4 % [facility] ABS Neutrophils 3.58 2.20 - 8.85 K/cmm [facility] ABS Lymphs 1.57 1.09 - 3.30 K/cmm [facility] ABS Monocytes 0.47 0.1 - 0.8 K/cmm [facility] ABS Eosinophils 0.15 0.03 - 0.61 K/cmm [facility] ABS Basophils 0.02 0.01 - 0.11 K/cmm [facility] Type of Diff: Automated [facility] 04/07/2006 10:3 4 EDT 04/07/2006 11:09 EDT Adam Herrera MD PACKAGES & DNA PROBE ORDER SATHISH Final Result [facility] [address] [place] [address] * AST (04/07/2006 10:34 EDT) AST 29 15 - 46 U/L [facility] 04/07/2006 10:3 4 EDT 04/07/2006 11:09 EDT us Adam Herrera MD CHEMISTRY & BLOOD GAS ORDE RABLES Final Result Performing Organization Address [facility]/ZIP Co de Phone Number [facility] [address] [place] [address] * ALT (04/07/2006 10:34 EDT) ALT 35 9 - 52 U/L [facility] 04/07/2006 10:3 4 EDT 04/07/2006 11:09 EDT Adam Herrera MD CHEMISTRY & BLOOD GAS ORDE RABLES Final Result Performing Organization Address City/[facility] Co de Phone Number [facility] [address] [place] [address] documented in this encounter Visit Diagnoses Not on filedocumented in this encounter
--- OUTSIDE RECORDS SUMMARY | 2024-09-30 00:07 | XMS_ITS | Encounter Summary ---
Author Organization [facility] Address [address] [place] [address] Care Team Providers Care Reducing Machine Operator Name Role Phone Unavailable Primary Care Provider Unavailabl e Encounter Details Date Type Department Care Team (Late st Contact Info) Description 12/18/2011 Results Only [facility] ([facility]) [address] [place], [place] [phone] Stephanie Olivares, [facility] [address] [place] [address] [place] [phone] Social History Tobacco Use Types Packs/Day Years [...] Diagnosis Comments PAP TEST- RESULT ONLY Routine 12/18/2011 0:00 EST documented in this encounter Results * PAP TEST- RESULT ONLY (12/18/2011 0:00 EST) Pathology Report: CYTOPATHOLOGY REPORT Reports generated via electronic interface contain original data; however they are lacking the format of the original report. Caution should be taken when reading/interpreti ng unformatted reports. Name: ? MELINDA MASON ? Accession #: ? [id number] : ? 1960 (Age: 51) ??F ?Collect Date: ? 12/18/2011 Location: ? [facility] ? Receive Date: ? 12/19/2011 Provider: ?STEPHANIE OLIVARES COLD FOOD PACKER Copy to: ?RADHA PENA MD ? Specimen/Source: ?Pap Test, Cervix/Endocervix, ThinPrep Imaging System with manual evaluation Last Menstrual Period: ? 12/04/11 ? SPECIMEN ADEQUACY ? Satisfactory for Evaluation - transformation zone component present GENERAL CATEGORIZATION ? Negative for Intraepithelial Lesion or Malignancy ? Document reviewed and electronically signed by: ? Vera Quiroga, CT(ASCP) ? Report Date: ??12/23/2011 13:45 End of Report [facility] 12/18/2011 12/19/2011 Stephanie Olivares COLD FOOD PACKER PATHOLOGY ORDERABLES Final R esult [facility] [address] [place] [address] documented in this encounter Visit Diagnoses Not on filedocumented in this encounter
--- OUTSIDE RECORDS SUMMARY | 2024-09-30 00:07 | XMS_ITS | Clinical Summary ---
Author Organization [facility] Address [address] [place] [address] Care Team Providers Care Signal Worker Helper Name Role Phone Ridge Wahl MD Primary Care Provide r Social History Tobacco Use Types Packs/Day Years Used Date Smoking Tobacco: Never Assessed Comments Unknown Sex and Gender Information Value Date Recorded Sex Assigned at Not on file Legal Sex Female 17:24 EST Gender Identity Not on file Sexual Orientation Not on file Plan of Treatment Health Maintenance Due Date Last Done Comments Hepatitis C Screen 1960 COVID-19 Vaccine (2023- season) 2024 RSV Immunization ( o r 60+ Years) (1 - 1-dose 75+ series) 2037 Care Teams Signal Worker Helper Relationship Specialty Start Date End Date Ridge Wahl MD [address] [place] [phone] PCP - General 01/02/15
--- OUTSIDE RECORDS SUMMARY | 2024-09-30 00:07 | XMS_ITS | Encounter Summary ---
Author Organization [facility] Address [address] [place] [address] Care Team Providers Care Grader Patrol Name Role Phone Unavailable Primary Care Provider Unavailabl e Encounter Details Date Type Department Care Team (Late st Contact Info) Description 04/08/2005 10:01 EDT Hospital Encounter [facility] [address] [place], [place] [phone] Jean-Claude Westbrook MD [address] [place] [phone] Social History Tobacco Use Types Packs/Day Years Used Date Smoking Tobacco: Never Assessed Comments Unknown Sex and Gender Information Value Date Recorded Sex Assigned at Not on file Legal Sex Female 17:24 EST Gender Identity Not on file Sexual Orientation Not on file documented as of this encounter Plan of Treatment Not on file documented as of this encounter Visit Diagnoses Not on filedocumented in this encounter
--- OUTSIDE RECORDS SUMMARY | 2024-09-30 00:07 | XMS_ITS | Encounter Summary ---
Author Organization [facility] Address [address] [place] [address] Care Team Providers Care Marble Supervisor Name Role Phone Unavailable Primary Care Provider Unavailabl e Encounter Details Date Type Department Care Team (Latest Contact Info) Description 04/06/2007 9:21 EDT - 04/06/2007 11:59 EDT [facility] [address] [place] [address] Adam Herrera MD Unknown, Provider, Discharge Disposition: Auto Discharge Social History Tobacco [...] Procedure Name Priority Date/Time Associated Diagnosis Comments HPV DETECTION, HIGH RISK TYPES Routine 06/02/2008 13:40 EDT CYTOPATHOLOGY Routine 06/02/2008 0:00 EDT SLIDE REQUEST Routine 04/06/2007 10:16 EDT COMPLETE BLOOD COUNT AND DIFFERENTIAL Routine 04/06/2007 10:16 EDT ALT Routine 04/06/2007 10:16 EDT AST Routine 04/06/2007 10:16 EDT TSH Routine 04/06/2007 10:16 EDT T4 FREE Routine 04/06/2007 10:16 EDT documented in this encounter Results * HUMAN PAPILLOMA VIRUS DNA TEST (06/02/2008 13:40 EDT) Specimen Description Cervix, ThinPrep vial [facility] Result Negative for HPV types 16, 18, 31, 33, 35, 39, 45, 51, 52, 56, 58, 59, and 68. [facility] Report Status Final [id number] [facility] 06/02/2008 13:4 0 EDT 06/08/2008 10:41 EDT Stephanie Olivares BEVELER MICROBIOLOGY - GENERAL ORDER SATHISH Final Result Performing Organization Address City/State/[facility] Co de Phone Number [facility] [address] [place] [address] * CYTOPATHOLOGY (06/02/2008 0:00 EDT) Pathology Report: CYTOPATHOLOGY REPORT ? Reports generated via electronic interface contain original data; ? however they are lacking the format of the original report. ? Caution should be taken when reading/interpreti ng unformatted reports. ? Name: ? ISABELLA, MELINAD A ? Accession #: ? [id number] ? : ? 1960 (Age: 47) ??F ?Collect Date: ? 06/02/2008 ? Location: ? [facility] ? Receive Date: ? 06/05/2008 ? Provider: ?STEPHANIE SANTANA BEVELER ? Copy to: ? Specimen/Source: ?ThinPrep Pap Test, Cervix/Endocervix, processed on Cytyc ThinPrep Imaging System, with manual evaluation ? Last Menstrual Period: ? 7/21/08 ? Other: ? HPVDX - HPV testing requested regardless of diagnosis on current ThinPrep Pap ?? test. ? SPECIMEN ADEQUACY ? Satisfactory for Evaluation ? - transformation zone component present ? GENERAL CATEGORIZATION ? Other, see interpretation ? INTERPRETATION ? Endometrial cells present in a woman equal to or greater than age 40. ? Negative for Intraepithelial Lesion. ? EDUCATIONAL NOTES/RECOMMENDATI ONS ? Benign appearing endometrial cells on Pap tests are usually a normal ? finding in women with regular menstrual cycles, especially if the Pap test was ?? collected during the first half of the menstrual cycle. ? There is data showing that endometrial cells on Pap tests may be associated with endometrial/uterin e abnormalities in post menopausal women or in perimenopausal women with abnormal bleeding. ? There is limited data on the significance of benign endometrial cells in post ?? menopausal women on HRT. ??Clinical correlation is recommended. ? Note: ??The Pap test is not an accurate test for the screening of endometrial ? lesions and should not be used as a follow up in patients with clinical ? suspicion of endometrial pathology. ? Document reviewed and electronically signed by: ? Nigel Ying, CT(ASCP) ? Report Date: ??06/07/2008 10:13 ? End of Report ? [facility] 06/02/2008 06/05/2008 us Stephanie Olivares BEVELER PATHOLOGY ORDERABLES Final R esult Performing Organization Address [facility] de Phone Number [facility] [address] [place] [address] * TSH (04/06/2007 10:16 EDT) TSH 2.43 0.35 - 5.00 uIU/mL [facility] 04/06/2007 10:1 6 EDT 04/06/2007 10:46 EDT Adam Herrera MD CHEMISTRY & BLOOD GAS ORDE RABKAYLEIGH Final Result Performing Organization Address [facility] de Phone Number [facility] [address] [place] [address] * SLIDE REQUEST (04/06/2007 10:16 EDT) Note A smear is filed in the Hematology lab [facility] 04/06/2007 10:1 6 EDT 04/06/2007 10:46 EDT Adam Herrera MD HEMATOLOGY & PF4 ORDERABLE S Final Result Performing Organization Address [facility] de Phone Number [facility] [address] [place] [address] * T4 FREE (04/06/2007 10:16 EDT) Free T4 1.3 0.8 - 1.8 ng/dL [facility] 04/06/2007 10:1 6 EDT 04/06/2007 10:46 EDT Adam Herrera MD CHEMISTRY & BLOOD GAS ORDE RABKAYLEIGH Final Result Performing Organization Address [facility] de Phone Number [facility] [address] [place] [address] * HEMAGRAM AND DIFFERENTIAL (04/06/2007 10:16 EDT) WBC 5.22 4.0 - 12.4 K/cmm [facility] RBC 4.87 3.86 - 5.04 M/cmm [facility] Hemoglobin 15.1 11.6 - 15.2 gm/dl [facility] HCT 44.1 34.9 - 44.4 % [facility] MCV 90 81 - 98 fl [facility] MCH 31.1 26.7 - 33.3 pg [facility] MCHC 34.4 32.1 - 35.9 gm/dl [facility] PLT 183 141 - 320 K/cmm [facility] RDW-CV 13.0 11.7 - 14.6 % [facility] % Neutrophils 61.6 45.5 - 79.7 % [facility] % Lymphocytes 27.2 15.0 - 46.8 % [facility] % Monocytes 7.0 1.8 - 12.0 % [facility] % Eosinophils 3.4 0.6 - 6.9 % [facility] % Basophils 0.8 0.2 - 1.4 % [facility] ABS Neutrophils 3.22 2.20 - 8.85 K/cmm [facility] ABS Lymphs 1.42 1.09 - 3.30 K/cmm [facility] ABS Monocytes 0.36 0.1 - 0.8 K/cmm [facility] ABS Eosinophils 0.18 0.03 - 0.61 K/cmm [facility] ABS Basophils 0.04 0.01 - 0.11 K/cmm [facility] Type of Diff: Automated [facility] 04/06/2007 10:1 6 EDT 04/06/2007 10:46 EDT us Adam Herrera MD PACKAGES & DNA PROBE ORDER SATHISH Final Result [facility] [address] [place] [address] * AST (04/06/2007 10:16 EDT) AST 27 15 - 46 U/L [facility] 04/06/2007 10:1 6 EDT 04/06/2007 10:46 EDT Adam Herrera MD CHEMISTRY & BLOOD GAS ORDE RABLES Final Result Performing Organization Address [facility] de Phone Number [facility] [address] [place] [address] * ALT (04/06/2007 10:16 EDT) ALT 34 9 - 52 U/L [facility] 04/06/2007 10:1 6 EDT 04/06/2007 10:46 EDT Adam Herrera MD CHEMISTRY & BLOOD GAS ORDE RABLES Final Result Performing Organization Address [facility] Phone Number [facility] [address] [place] [address] documented in this encounter Visit Diagnoses Not on filedocumented in this encounter Orders Lab Orders Without Results Count Last Ordered D ate First Ordered Date CYTOPATHOLOGY 1 06/02/2008 documented in this encounter
--- OUTSIDE RECORDS SUMMARY | 2024-09-30 00:07 | XMS_ITS | Encounter Summary ---
Author Organization [facility] Address [address] [place] [address] Care Team Providers Care Meat Service Team Member Name Role Phone Jaret Jaimes MD Primary Care Provider Unavail able Encounter Details Date Type Department Care Team (Latest Contact Info) Description 12/29/2014 8:47 EST - 12/29/2014 23:59 EST Hospital Encounter [address] [address] Unknown, Provider, MD Discharge Disposition: Home or Self Care Social History Tobacco Use Types Packs/Day Years Used Date Smoking Tobacco: Never Assessed Comments Unknown Sex and Gender Information Value Date Recorded Sex Assigned at Not on file Legal Sex Female 17:24 EST Gender Identity Not on file Sexual Orientation Not on file documented as of this encounter Discharge Disposition Disposition Code Departure Means Destination Home or Self Detention documented in this encounter Plan of Treatment Not on file documented as of this encounter Visit Diagnoses Not on filedocumented in this encounter Care Teams Meat Service Team Member Relationship Specialty Start Date End Date Jaret Jaimes MD PCP - General 02/02/13 01/01/15 documented as of this encounter
--- OUTSIDE RECORDS SUMMARY | 2024-09-30 00:07 | XMS_ITS | Encounter Summary ---
Author Organization [facility] Address [address] [place] [address] Care Team Providers Care Floral Merchandiser Name Role Phone Ridge Wahl MD Primary Care Provide r Encounter Details Date Type Department Care Team (Late st Contact Info) Description 06/20/2019 Results Only [facility] [phone] Stephanie Olivares, [address] [place] [phone] Social History Tobacco Use Types Packs/Day Years [...] Diagnosis Comments PAP TEST- RESULT ONLY Routine 06/20/2019 0:00 EDT documented in this encounter Results * PAP TEST- RESULT ONLY (06/20/2019 0:00 EDT) Pathology Report: CYTOPATHOLOGY REPORT Reports generated via electronic interface contain original data; however they are lacking the format of the original report. Caution should be taken when reading/interpreti ng unformatted reports. Name: ? MELINDA POLLOCK ? Accession #: ? [id number] ? : ? 1960 (Age: 58) ??F ?Collect Date: ? 06/20/2019 ? Location: ? [facility] ? Receive Date: ? 06/21/2019 ? Provider: STEPHANIE OLIVARES TORPEDO WORKER Copy to: ? Final Report SPECIMEN ADEQUACY ? Satisfactory for Evaluation - transformation zone component present GENERAL CATEGORIZATION ? Negative for Intraepithelial Lesion or Malignancy ?? Last Menstrual Period: 2016 Specimen/Source: ??Pap Test, Cervix, ThinPrep Imaging System with manual evaluation Document reviewed and electronically signed by: ? RUSTY Devlin(ASCP) ? Report ??Date: 06/23/2019 13:46 HPV with Pap Test ? Date Ordered: ? 06/23/2019 ? Status: ?? Signed Out ?Date Complete: ? 06/24/2019 ? By: ??System Interface ? Date Reported: ? 06/24/2019 ? Interpretation RESULT: Negative for HPV. No E6 or E7 mRNA is detected from HPV types 16,18,31,33,35, 39,45,51,52,56,58, 59,66, and 68 by loan review officer mediated amplification. Comments Document reviewed and electronically signed by: ? System Interface ? Report date: 06/24/2019 By the signature above, the attending physician certifies that he/she has personally conducted a gross and/or microscopic examination of the described specimens and rendered or confirmed the above diagnosis. End of Report [facility] 06/20/2019 06/21/2019 Stephanie Olivares TORPEDO WORKER PATHOLOGY ORDERABLES Final R esult [facility] [address] [place] [address] documented in this encounter Visit Diagnoses Not on filedocumented in this encounter Care Teams Floral Merchandiser Relationship Specialty Start Date End Date Ridge Wahl MD [address] [place] [phone] PCP - General 01/02/15 documented as of this encounter
--- OUTSIDE RECORDS SUMMARY | 2024-09-30 00:08 | XMS_ITS | Encounter Summary ---
Author Organization [facility] Address [address] [place] [address] Care Team Providers Care Oracle Bpm Developer Name Role Phone Unavailable Primary Care Provider Unavailabl e Encounter Details Date Type Department Care Team (Latest Contact Info) Description 06/26/2003 12:37 EDT Hospital Encounter [address] [address] Adam Herrera MD Discharge Disposition: Auto Discharge [...] Date/Time Associated Diagnosis Comments RAD US NECK/THYROID Routine 06/26/2003 1 3:44 EDT documented in this encounter Results * RAD US NECK/THYROID (06/26/2003 13:44 EDT) Anatomical Region Laterality Modality Other 06/26/2003 13:4 4 EDT Impressions 07/02/2009 1:53 EDT IMPRESSION: #1: Two small cysts in the left lobe of the thyroid gland which has a benign appearance. The largest was 3 mm. #2: There was a small 5 mm nodule in the right side of the isthmus at the junction with the right lobe of the thyroid gland. This was well circumscribed. It is likely benign. D: 06-26-03 T: 06-28-03 /am Narrative 07/02/2009 1:53 EDT THYROID U/S, HX OF ACUTE LEUKEMIA R/O THYROID CA 06-26-03 ULTRASOUND NECK/THYROID: Patient has a history of acute leukemia with radiation. We are asked to rule out thyroid cancer. The neck was scanned in transverse and sagittal planes. The right lobe of the thyroid measured 4.8 cm x 1.6 cm x 1.0 cm. The left lobe measured 4.8 cm x 1.6 cm x 1.1 cm. The isthmus was 2.6 mm. There was a small ovoid nodule well circumscribed in the right side of the isthmus measuring 5 mm x 3 mm x 5 mm. This was slightly heterogenous with hypo and isoechoic areas within it. There were two small cysts in the left lobe. One in the inferior aspect measured 3 mm in greatest dimension and one in the mid aspect measured 2 mm in dimension. No evidence of lymphadenopathy. Procedure Note Jamila Hester MD - 07/02/2009 THYROID U/S, HX OF ACUTE LEUKEMIA R/O THYROID CA 06-26-03 ULTRASOUND NECK/THYROID: Patient has a history of acute leukemia with radiation. We are asked to rule out thyroid cancer. The neck was scanned in transverse and sagittal planes. The right lobe of the thyroid measured 4.8 cm x 1.6 cm x 1.0 cm. The left lobe measured 4.8 cm x 1.6 cm x 1.1 cm. The isthmus was 2.6 mm. There was a small ovoid nodule well circumscribed in the right side of the isthmus measuring 5 mm x 3 mm x 5 mm. This was slightly heterogenous with hypo and isoechoic areas within it. There were two small cysts in the left lobe. One in the inferior aspect measured 3 mm in greatest dimension and one in the mid aspect measured 2 mm in dimension. No evidence of lymphadenopathy. IMPRESSION IMPRESSION: #1: Two small cysts in the left lobe of the thyroid gland which has a benign appearance. The largest was 3 mm. #2: There was a small 5 mm nodule in the right side of the isthmus at the junction with the right lobe of the thyroid gland. This was well circumscribed. It is likely benign. D: 06-26-03 T: 06-28-03 /am us Adam Herrera MD G US ORDERABLES Final Re sult documented in this encounter Visit Diagnoses Not on filedocumented in this encounter
--- OUTSIDE RECORDS SUMMARY | 2024-09-30 00:08 | XMS_ITS | Encounter Summary ---
Author Organization [facility] Address [address] [place] [address] Care Team Providers Care Farmer General Name Role Phone Unavailable Primary Care Provider Unavailabl e Encounter Details Date Type Department Care Team (Late st Contact Info) Description 03/11/2001 10:47 EDT - 04/01/2001 11:59 EDT Hospital Encounter [facility] [address] [place] [address] Jean-Claude Westbrook MD [address] [place] [phone] Discharge Disposition: Auto Discharge Social History Tobacco [...] Procedure Name Priority Date/Time Associated Diagnosis Comments HEMAGRAM & DIFF Routine 03/11/2001 10:45 EDT ALT Routine 03/11/2001 10:45 EDT AST Routine 03/11/2001 10:45 EDT TSH Routine 03/11/2001 10:45 EDT T4 FREE Routine 03/11/2001 10:45 EDT documented in this encounter Results * TSH (03/11/2001 10:45 EDT) TSH 2.68 0.35 - 5.50 uIU/ml [facility] 03/11/2001 10:4 5 EDT 03/11/2001 10:47 EDT Jean-Claude Westbrook MD CHEMISTRY & BLOOD GAS ORDERABLE S Final Result Performing Organization Address City/[facility]/ZIP Co de Phone Number [facility] [address] [place] [address] * T4 FREE (03/11/2001 10:45 EDT) Free T4 1.1 0.8 - 1.8 ng/dl [facility] 03/11/2001 10:4 5 EDT 03/11/2001 10:47 EDT us Jean-Claude Westbrook MD CHEMISTRY & BLOOD GAS ORDERABLE S Final Result Performing Organization Address [facility] Co de Phone Number [facility] [address] [place] [address] * HEMAGRAM & DIFF (03/11/2001 10:45 EDT) WBC 6.25 4.0 - 12.4 K/cmm [facility] RBC 4.55 3.86 - 5.04 M/cmm [facility] Hemoglobin 14.6 11.6 - 15.2 gm/dl [facility] HCT 41.2 34.9 - 44.4 % [facility] MCV 91 81 - 98 fl [facility] MCH 32.0 26.7 - 33.3 pg [facility] MCHC 35.4 32.1 - 35.9 gm/dl [facility] PLT 217 141 - 320 K/cmm [facility] RDW-CV 12.7 11.7 - 14.6 % [facility] % Neutrophils 54.2 45.5 - 79.7 % [facility] % Lymphocytes 32.0 15.0 - 46.8 % [facility] % Monocytes 7.9 1.8 - 12.0 % [facility] % Eosinophils 5.4 0.6 - 6.9 % [facility] % Basophils 0.5 0.2 - 1.4 % [facility] ABS Neutrophils 3.38 2.20 - 8.85 K/cmm [facility] ABS Lymphs 2.00 1.09 - 3.30 K/cmm [facility] ABS Monocytes 0.49 0.1 - 0.8 K/cmm [facility] ABS Eosinophils 0.34 0.03 - 0.61 K/cmm [facility] ABS Basophils 0.03 0.01 - 0.11 K/cmm [facility] Type of Diff: Automated [facility] 03/11/2001 10:4 5 EDT 03/11/2001 10:47 EDT Jean-Claude Westbrook MD HISTORICAL LAB FOR SQ LOAD Milli l Result [facility] [address] [place] [address] * AST (03/11/2001 10:45 EDT) AST 29 8 - 50 U/L [facility] 03/11/2001 10:4 5 EDT 03/11/2001 10:47 EDT Jean-Claude Westbrook MD CHEMISTRY & BLOOD GAS ORDERABLE S Final Result [facility] [address] [place] [address] * ALT (03/11/2001 10:45 EDT) ALT 35 15 - 75 U/L [facility] 03/11/2001 10:4 5 EDT 03/11/2001 10:47 EDT Jean-Claude Westbrook MD CHEMISTRY & BLOOD GAS ORDERABLE S Final Result [facility] [address] [place] [address] documented in this encounter Visit Diagnoses Not on filedocumented in this encounter
--- OUTSIDE RECORDS SUMMARY | 2024-09-30 00:08 | XMS_ITS | Encounter Summary ---
Author Organization [facility] Address [address] [place] [address] Care Team Providers Care Press Leader Name Role Phone Unavailable Primary Care Provider Unavailabl e Encounter Details Date Type Department Care Team (Late st Contact Info) Description 05/02/2002 19:17 EDT Hospital Encounter [facility] [address] [place] [address] Jean-Claude Westbrook MD [address] [place] [phone] Catrachita Bermudez MD [address] [place] [phone] Social History Tobacco Use Types Packs/Day Years [...]
--- OUTSIDE RECORDS SUMMARY | 2024-09-30 00:08 | XMS_ITS | Encounter Summary ---
Author Organization [facility] Address [address] [place] [address] Care Team Providers Care Telecommunication Lines Repairer Name Role Phone Unavailable Primary Care Provider Unavailabl e Encounter Details Date Type Department Care Team (Late st Contact Info) Description 04/02/2004 10:56 EDT Hospital Encounter [facility] [address] [place] [address] Adam Herrera MD Social History Tobacco Use Types Packs/Day Years [...]
--- OUTSIDE RECORDS SUMMARY | 2024-09-30 00:08 | XMS_ITS | Encounter Summary ---
Author Organization [facility] Address [address] [place] [address] Care Team Providers Care Tubing Assembler Name Role Phone Unavailable Primary Care Provider Unavailabl e Encounter Details Date Type Department Care Team (Late st Contact Info) Description 04/08/2002 9:11 EDT Hospital Encounter [facility] [place], operated [facility] [address] [place] [address] Jean-Claude Westbrook MD [address] [place] [id number] Catrachita Bermudez MD [address] [place] [phone] Social History Tobacco Use Types Packs/Day [...] Associated Diagnosis Comments HEMAGRAM & DIFF Routine 04/08/2002 9:15 EDT SLIDE REQUEST Routine 04/08/2002 9:15 EDT ALT Routine 04/08/2002 9:15 EDT AST Routine 04/08/2002 9:15 EDT TSH Routine 04/08/2002 9:15 EDT T4 FREE Routine 04/08/2002 9:15 EDT documented in this encounter Results * TSH (04/08/2002 9:15 EDT) TSH 1.98 0.35 - 5.50 uIU/ml [facility] 04/08/2002 9:15 EDT 04/08/2002 9:17 EDT us Catrachita Bermudez MD CHEMISTRY & BLOOD GAS ORDERABL ES Final Result Performing Organization Address [facility] de Phone Number [facility] [address] [place] [address] * SLIDE REQUEST (04/08/2002 9:15 EDT) Note A smear is filed in the Hematology lab [facility] 04/08/2002 9:15 EDT 04/08/2002 9:17 EDT us Catrachita Bermudez MD HEMATOLOGY & PF4 ORDERABLES Fi nal Result Performing Organization Address [facility] de Phone Number [facility] [address] [place] [address] * T4 FREE (04/08/2002 9:15 EDT) Free T4 1.0 0.8 - 1.8 ng/dl [facility] 04/08/2002 9:15 EDT 04/08/2002 9:17 EDT us Catrachita Bermudez MD CHEMISTRY & BLOOD GAS ORDERABL ES Final Result Performing Organization Address [facility] de Phone Number [facility] [address] [place] [address] * HEMAGRAM & DIFF (04/08/2002 9:15 EDT) Pathologist [facility] WBC 6.47 4.0 - 12.4 K/cmm [facility] RBC 4.55 3.86 - 5.04 M/cmm [facility] Hemoglobin 14.3 11.6 - 15.2 gm/dl [facility] HCT 41.2 34.9 - 44.4 % [facility] MCV 91 81 - 98 fl [facility] MCH 31.3 26.7 - 33.3 pg [facility] MCHC 34.6 32.1 - 35.9 gm/dl [facility] PLT 220 141 - 320 K/cmm [facility] RDW-CV 12.8 11.7 - 14.6 % [facility] % Neutrophils 60.4 45.5 - 79.7 % [facility] % Lymphocytes 28.0 15.0 - 46.8 % [facility] % Monocytes 6.5 1.8 - 12.0 % [facility] % Eosinophils 4.6 0.6 - 6.9 % [facility] % Basophils 0.5 0.2 - 1.4 % [facility] ABS Neutrophils 3.91 2.20 - 8.85 K/cmm [facility] ABS Lymphs 1.81 1.09 - 3.30 K/cmm [facility] ABS Monocytes 0.42 0.1 - 0.8 K/cmm [facility] ABS Eosinophils 0.29 0.03 - 0.61 K/cmm [facility] ABS Basophils 0.03 0.01 - 0.11 K/cmm [facility] Type of Diff: Automated [facility] 04/08/2002 9:15 EDT 04/08/2002 9:17 EDT us Catrachita Bermudez MD HISTORICAL LAB FOR SQ LOAD Fin al Result [facility] [address] [place] [address] * AST (04/08/2002 9:15 EDT) AST 24 8 - 50 U/L [facility] 04/08/2002 9:15 EDT 04/08/2002 9:17 EDT us Catrachita Bermudez MD CHEMISTRY & BLOOD GAS ORDERABL ES Final Result [facility] [address] [place] [address] * ALT (04/08/2002 9:15 EDT) ALT 29 15 - 75 U/L [facility] 04/08/2002 9:15 EDT 04/08/2002 9:17 EDT us Catrachita Bermudez MD CHEMISTRY & BLOOD GAS ORDERABL ES Final Result Performing Organization Address City/[facility]/ZIP Co de Phone Number [facility] [address] [place] [address] documented in this encounter Visit Diagnoses Not on filedocumented in this encounter
--- OUTSIDE RECORDS SUMMARY | 2024-09-30 00:08 | XMS_ITS | Encounter Summary ---
Author Organization [facility] Address [address] [place] [address] Care Team Providers Care Zoogler Name Role Phone Unavailable Primary Care Provider Unavailabl e Encounter Details Date Type Department Care Team (Latest Contact Info) Description 04/02/2000 14:12 EDT - 05/01/2000 11:59 EDT Hospital Encounter [facility] [address] [place] [address] Adam Herrera MD Discharge Disposition: Auto Discharge [...] Associated Diagnosis Comments HEMAGRAM & DIFF Routine 04/09/2000 10:42 EDT ALT Routine 04/09/2000 10:42 EDT AST Routine 04/09/2000 10:42 EDT TSH Routine 04/09/2000 10:42 EDT T4 FREE Routine 04/09/2000 10:42 EDT documented in this encounter Results * TSH (04/09/2000 10:42 EDT) TSH 1.53 0.35 - 5.50 uIU/ml [facility] 04/09/2000 10:4 2 EDT 04/09/2000 10:53 EDT us Jean-Claude Westbrook MD CHEMISTRY & BLOOD GAS ORDERABLE S Final Result Performing Organization Address City/[facility] Co de Phone Number [facility] [address] [place] [address] * T4 FREE (04/09/2000 10:42 EDT) Free T4 1.2 0.8 - 1.8 ng/dl [facility] 04/09/2000 10:4 2 EDT 04/09/2000 10:53 EDT us Jean-Claude Westbrook MD CHEMISTRY & BLOOD GAS ORDERABLE S Final Result Performing Organization Address [facility] de Phone Number [facility] [address] [place] [address] * (ABNORMAL) HEMAGRAM & DIFF (04/09/2000 10:42 EDT) Pathologist [facility] WBC 5.55 4.0 - 12.4 K/cmm [facility] RBC 4.93 3.86 - 5.04 M/cmm [facility] Hemoglobin 15.4(H) 11.6 - 15.2 gm/dl [facility] HCT 44.7(H) 34.9 - 44.4 % [facility] MCV 91 81 - 98 fl [facility] MCH 31.2 26.7 - 33.3 pg [facility] MCHC 34.4 32.1 - 35.9 gm/dl [facility] PLT 188 141 - 320 K/cmm [facility] RDW-CV 12.5 11.7 - 14.6 % [facility] % Neutrophils 52.2 45.5 - 79.7 % [facility] % Lymphocytes 32.4 15.0 - 46.8 % [facility] % Monocytes 7.4 1.8 - 12.0 % [facility] % Eosinophils 7.5(H) 0.6 - 6.9 % [facility] % Basophils 0.5 0.2 - 1.4 % [facility] ABS Neutrophils 2.89 2.20 - 8.85 K/cmm [facility] ABS Lymphs 1.80 1.09 - 3.30 K/cmm [facility] ABS Monocytes 0.41 0.1 - 0.8 K/cmm [facility] ABS Eosinophils 0.42 0.03 - 0.61 K/cmm [facility] ABS Basophils 0.03 0.01 - 0.11 K/cmm [facility] Type of Diff: Automated [facility] 04/09/2000 10:4 2 EDT 04/09/2000 10:53 EDT Jean-Claude Westbrook MD HISTORICAL LAB FOR SQ LOAD Milli l Result Performing Organization Address [facility] de Phone Number [facility] [address] [place] [address] * AST (04/09/2000 10:42 EDT) AST 21 8 - 50 U/L [facility] 04/09/2000 10:4 2 EDT 04/09/2000 10:53 EDT Jean-Claude Westbrook MD CHEMISTRY & BLOOD GAS ORDERABLE S Final Result Performing Organization Address [facility] Co de Phone Number [facility] [address] [place] [address] * ALT (04/09/2000 10:42 EDT) ALT 22 15 - 75 U/L [facility] 04/09/2000 10:4 2 EDT 04/09/2000 10:53 EDT us Jean-Claude Westbrook MD CHEMISTRY & BLOOD GAS ORDERABLE S Final Result Performing Organization Address [facility] Co de Phone Number [facility] [address] [place] [address] documented in this encounter Visit Diagnoses Not on filedocumented in this encounter
--- OUTSIDE RECORDS SUMMARY | 2024-09-30 00:08 | XMS_ITS | Encounter Summary ---
Author Organization [facility] Address [address] [place] [address] Care Team Providers Care Grounds Person Name Role Phone Unavailable Primary Care Provider Unavailabl e Encounter Details Date Type Department Care Team (Late st Contact Info) Description 04/07/2003 8:16 EDT Hospital Encounter [facility] [address] [place] [address] Adam Herrera MD Social History Tobacco Use [...]
--- OUTSIDE RECORDS SUMMARY | 2024-09-30 00:08 | XMS_ITS | Encounter Summary ---
Author Organization [facility] Address [address] [place] [address] Care Team Providers Care Customer Service Attendant Name Role Phone Unavailable Primary Care Provider Unavailabl e Encounter Details Date Type Department Care Team (Late st Contact Info) Description 04/07/2003 Results Only [facility] Pediatric Hematology & Oncology - [address] [phone] Adam Herrera MD Social History Tobacco Use [...] Procedure Name Priority Date/Time Associated Diagnosis Comments COMPLETE BLOOD COUNT AND DIFFERENTIAL Routine 04/07/2003 9:36 EDT ALT Routine 04/07/2003 9:36 EDT AST Routine 04/07/2003 9:36 EDT TSH Routine 04/07/2003 9:36 EDT T4 FREE Routine 04/07/2003 9:36 EDT documented in this encounter Results * TSH (04/07/2003 9:36 EDT) TSH 2.27 0.35 - 5.50 uIU/ml [facility] 04/07/2003 9:36 EDT 04/07/2003 9:37 EDT Adam Herrera MD CHEMISTRY & BLOOD GAS ORDE RABLES Final Result Performing Organization Address City/[facility] Co de Phone Number [facility] [address] [place] [address] * T4 FREE (04/07/2003 9:36 EDT) Free T4 1.2 0.8 - 1.8 ng/dl [facility] 04/07/2003 9:36 EDT 04/07/2003 9:37 EDT Adam Herrera MD CHEMISTRY & BLOOD GAS ORDE RABLES Final Result Performing Organization Address [facility] de Phone Number [facility] [address] [place] [address] * HEMAGRAM AND DIFFERENTIAL (04/07/2003 9:36 EDT) WBC 5.67 4.0 - 12.4 K/cmm [facility] RBC 4.76 3.86 - 5.04 M/cmm [facility] Hemoglobin 15.0 11.6 - 15.2 gm/dl [facility] HCT 43.3 34.9 - 44.4 % [facility] MCV 91 81 - 98 fl [facility] MCH 31.5 26.7 - 33.3 pg [facility] MCHC 34.7 32.1 - 35.9 gm/dl [facility] PLT 175 141 - 320 K/cmm [facility] RDW-CV 12.7 11.7 - 14.6 % [facility] % Neutrophils 65.4 45.5 - 79.7 % [facility] % Lymphocytes 24.2 15.0 - 46.8 % [facility] % Monocytes 7.2 1.8 - 12.0 % [facility] % Eosinophils 2.7 0.6 - 6.9 % [facility] % Basophils 0.5 0.2 - 1.4 % [facility] ABS Neutrophils 3.71 2.20 - 8.85 K/cmm [facility] ABS Lymphs 1.37 1.09 - 3.30 K/cmm [facility] ABS Monocytes 0.41 0.1 - 0.8 K/cmm [facility] ABS Eosinophils 0.15 0.03 - 0.61 K/cmm [facility] ABS Basophils 0.03 0.01 - 0.11 K/cmm [facility] Type of Diff: Automated [facility] 04/07/2003 9:36 EDT 04/07/2003 9:37 EDT Adam Herrera MD PACKAGES & DNA PROBE ORDER SATHISH Final Result Performing Organization Address [facility] Co de Phone Number [facility] [address] [place] [address] * AST (04/07/2003 9:36 EDT) AST 23 8 - 50 U/L [facility] 04/07/2003 9:36 EDT 04/07/2003 9:37 EDT Adam Herrera MD CHEMISTRY & BLOOD GAS ORDE RABKAYLEIGH Final Result Performing Organization Address [facility] Co de Phone Number [facility] [address] [place] [address] * ALT (04/07/2003 9:36 EDT) ALT 29 15 - 75 U/L [facility] 04/07/2003 9:36 EDT 04/07/2003 9:37 EDT Adam Herrera MD CHEMISTRY & BLOOD GAS ORDE RABKAYLEIGH Final Result Performing Organization Address [facility] Co de Phone Number [facility] [address] [place] [address] documented in this encounter Visit Diagnoses Not on filedocumented in this encounter
--- OUTSIDE RECORDS SUMMARY | 2024-09-30 00:08 | XMS_ITS | Encounter Summary ---
Author Organization [facility] Address [address] [place] [address] Care Team Providers Care High School History Teacher Name Role Phone Unavailable Primary Care Provider Unavailabl e Encounter Details Date Type Department Care Team (Late st Contact Info) Description 04/02/2004 Results Only [facility] Pediatric Hematology & Oncology - [address] [phone] Adam Herrera MD Social History Tobacco Use [...] Procedure Name Priority Date/Time Associated Diagnosis Comments SLIDE REQUEST Routine 04/02/2004 11:55 EDT COMPLETE BLOOD COUNT AND DIFFERENTIAL Routine 04/02/2004 11:55 EDT ALT Routine 04/02/2004 11:55 EDT AST Routine 04/02/2004 11:55 EDT TSH Routine 04/02/2004 11:55 EDT T4 FREE Routine 04/02/2004 11:55 EDT documented in this encounter Results * TSH (04/02/2004 11:55 EDT) TSH 2.86 0.35 - 5.50 uIU/ml [facility] 04/02/2004 11:5 5 EDT 04/02/2004 12:00 EDT Adam Herrera MD CHEMISTRY & BLOOD GAS ORDE RABLES Final Result Performing Organization Address [facility] de Phone Number [facility] [address] [place] [address] * SLIDE REQUEST (04/02/2004 11:55 EDT) Note A smear is filed in the Hematology lab [facility] 04/02/2004 11:5 5 EDT 04/02/2004 12:00 EDT Adam Herrera MD HEMATOLOGY & PF4 ORDERABLE S Final Result Performing Organization Address [facility] Phone Number [facility] [address] [place] [address] * T4 FREE (04/02/2004 11:55 EDT) Free T4 1.2 0.8 - 1.8 ng/dl [facility] 04/02/2004 11:5 5 EDT 04/02/2004 12:00 EDT Adam Herrera MD CHEMISTRY & BLOOD GAS ORDE RABLES Final Result Performing Organization Address [facility] de Phone Number [facility] [address] [place] [address] * HEMAGRAM AND DIFFERENTIAL (04/02/2004 11:55 EDT) WBC 8.35 4.0 - 12.4 K/cmm [facility] RBC 4.83 3.86 - 5.04 M/cmm [facility] Hemoglobin 15.1 11.6 - 15.2 gm/dl [facility] HCT 43.8 34.9 - 44.4 % [facility] MCV 91 81 - 98 fl [facility] MCH 31.3 26.7 - 33.3 pg [facility] MCHC 34.4 32.1 - 35.9 gm/dl [facility] PLT 183 141 - 320 K/cmm [facility] RDW-CV 13.3 11.7 - 14.6 % [facility] % Neutrophils 70.7 45.5 - 79.7 % [facility] % Lymphocytes 20.3 15.0 - 46.8 % [facility] % Monocytes 6.5 1.8 - 12.0 % [facility] % Eosinophils 2.0 0.6 - 6.9 % [facility] % Basophils 0.5 0.2 - 1.4 % [facility] ABS Neutrophils 5.91 2.20 - 8.85 K/cmm [facility] ABS Lymphs 1.69 1.09 - 3.30 K/cmm [facility] ABS Monocytes 0.54 0.1 - 0.8 K/cmm [facility] ABS Eosinophils 0.17 0.03 - 0.61 K/cmm [facility] ABS Basophils 0.04 0.01 - 0.11 K/cmm [facility] Type of Diff: Automated [facility] 04/02/2004 11:5 5 EDT 04/02/2004 12:00 EDT Adam Herrera MD PACKAGES & DNA PROBE ORDER SATHISH Final Result Performing Organization Address City/[facility] Co de Phone Number [facility] [address] [place] [address] * AST (04/02/2004 11:55 EDT) AST 19 15 - 46 U/L [facility] 04/02/2004 11:5 5 EDT 04/02/2004 12:00 EDT Adam Herrera MD CHEMISTRY & BLOOD GAS ORDE RABKAYLEIGH Final Result Performing Organization Address City/[facility]/ZIP Co de Phone Number [facility] [address] [place] [address] * ALT (04/02/2004 11:55 EDT) ALT 25 9 - 52 U/L [facility] 04/02/2004 11:5 5 EDT 04/02/2004 12:00 EDT us Adam Herrera MD CHEMISTRY & BLOOD GAS GLORIA CAMACHO Final Result [facility] [address] [place] [address] documented in this encounter Visit Diagnoses Not on filedocumented in this encounter
--- NOTE | 2024-09-30 07:52 | DI.MAMMO_ITS ---
Exam(s) MAMMO SCREENING EXAM: MAMMO SCREENING CLINICAL HISTORY: screening TECHNIQUE: Bilateral full field digital CC and MLO mammographic images were obtained with 3D tomosyn thesis and utilizing computer aided detection (CAD). COMPARISON: Available for comparison. FINDINGS: Masses/Architectural Distortion: None seen. Microcalcifications: No suspicious pleomorphic-type are seen. Skin Thickening/Nipple Retraction: None. IMPRESSION: 1. No significant interval change with no specific features of malignancy noted. 2. Unless there is more urgent need, screening mammography is recommended, as per [employer] guidelines. BI-RADS Category 1 - Negative Breast Density - Category B - Scattered areas of fibroglandular density Breast density category C or D implies that the patient has dense breast tissue. Dense breast tissue is very common and is not abnormal but dense breast tissue can make it harder to find cancer on a ma mmogram. Also, dense breast tissue may increase their breast cancer risk. This information about the result of the mammogram report was provided to the patient to raise their awareness. Use this report when you speak with the patient about their risks for breast cancer, which includes their family hist ory. At that time, you may recommend for more screening tests (Ultrasound or MRI) as they might be us eful based on their risk. A negative radiographic report should not delay biopsy if a dominant or clinically suspicious mass is present. Up to ten percent of cancers are not identified on mammography. A negative report may reinforce clinical impression. Adenosis and dense breasts may obscure an underlying neoplasm. False positive reports average 6 to 10%. Patient will receive a letter notifying them of these results.
== END 2024-09-30 00:25 ==
LOC: DI 00:05
PROVIDERS: PCP Family Medicine; Visit Provider Nurse Practitioner Women's Health
DX: Z12.31 Encounter for screening mammogram for malignant neoplasm of breast (principal); R92.323 Mammographic fibroglandular density, bilateral breasts
CPT/HCPCS: 77063; 77067

== ENCOUNTER 2025-04-13 07:16 | Outpatient (CLI) | payer BC, SELFPAY ==
[2025-04-13 07:29] LABS: Hemoglobin A1C 5.3 % (<5.7)
== END 2025-04-13 07:17 | disposition home or self-care (01) ==
LOC: LBO 07:16
PROVIDERS: PCP Family Medicine; Visit Provider Family Medicine
DX: R73.9 Hyperglycemia, unspecified (principal)
CPT/HCPCS: 36415; 83036

== ENCOUNTER → 2025-10-03 00:18 | Outpatient (CLI) | payer OTHER, SELFPAY ==
--- NOTE | 2025-10-03 07:59 | DI.MAMMO_ITS ---
Exam(s) MAMMO SCREENING EXAM: MAMMO SCREENING CLINICAL HISTORY: screening,z12.39. TECHNIQUE: Bilateral full field digital CC and MLO mammographic images were obtained with 3D tomosynthesis and utilizing computer aided detection (CAD). COMPARISON: Prior mammograms were reviewed. FINDINGS: There has been no significant change in the appearance and distribution of the fibroglandular tissue. There are no new spiculated masses nor malignant appearing microcalcification groups. There is no significant architectural distortion nor skin thickening-retraction. IMPRESSION: No radiographic evidence of malignancy. BI-RADS Category 1 - Negative Breast Density - Category B - There are scattered areas of fibroglandular density. Breast density Category C or D implies that the patient has dense breast tissue. Dense breast tissue can make it harder to find cancer on a mammogram. Dense breast tissue is also associated with an increased risk of breast cancer. This information about the result of the mammogram report was provided to the patient to raise their awareness. Use this report when you speak with the patient about their risks for breast cancer, which includes their family history. At that time, you may recommend additional screening tests (Ultrasound or MRI) as these tests may add significant information. A negative radiographic report should not delay biopsy if a dominant or clinically suspicious mass is present. Up to ten percent of cancers are not identified on mammography. A negative report may reinforce clinical impression. Adenosis and dense breasts may obscure an underlying neoplasm. False positive reports average 6 to 10%. Patient will receive a letter notifying them of these results.
== END ==
PROVIDERS: PCP Family Medicine; Visit Provider Nurse Practitioner Women's Health
DX: Z12.31 Encounter for screening mammogram for malignant neoplasm of breast (principal); R92.323 Mammographic fibroglandular density, bilateral breasts
CPT/HCPCS: 77063; 77067